=== PATIENT | male | born 1940 | race Caucasian/White ===

== ENCOUNTER 2017-04-27 15:35 | Inpatient (IN) ==
[2017-04-27] MEDS ORDERED: SODIUM CHLORIDE 0.9% 1,000 ML IV STA (16:17)
[2017-04-27 16:22] LABS: Basophils % 0.3 % (0.0-0.8); Eosinophils # 0.1 10*3/uL (0.0-0.87); Eosinophils % 1.7 % (0.00-10.9); Hematocrit 31.4 VOL% (42.0-52.0); Hemoglobin 9.9 GM/DL (14.0-18.0); Immature Granulocytes % 0.6 %; Immature Granulocytes Absolute 0.04 #; Lymphocytes # 0.5 10*3/uL (1.4-4.0); Lymphocytes % 7.5 % (21.2-54.2); Mean Corpuscular HGB Conc 31.5 GM/DL (32-36); Mean Corpuscular Hemoglobin 26 PG (27-34); Mean Corpuscular Volume 81.6 FL (87-102); Mean Platelet Volume 10.6 FL (9.6-12.0); Monocytes # 0.6 10*3/uL (0.11-0.8); Monocytes % 9.2 % (1.7-12.7); Neutrophils # 5.3 10*3/uL (1.4-7.4); Neutrophils % 80.7 % (38.7-73.9); Platelet Count 165 T/CUMM (130-400); Red Blood Count 3.85 MC/CUMM (3.8-5.5); Red Cell Distribution Width 18.8 % (9.3-17.3); White Blood Count 6.6 T/CUMM (4-12)
[2017-04-27] MEDS ORDERED: MORPHINE 2 MG/1 ML SYRINGE IV STA (16:24)
[2017-04-27] MEDS ORDERED: ONDANSETRON 4 MG/2 ML VIAL IV STA (16:24)
[2017-04-27] MEDS ORDERED: ONDANSETRON 4 MG/2 ML VIAL ONE (16:35)
[2017-04-27] MEDS ORDERED: MORPHINE 2 MG/1 ML SYRINGE ONE (16:36)
[2017-04-27 16:47] LABS: Albumin 3.4 G/DL (3.4-5.0); Bilirubin,Total 0.9 MG/DL (0.2-1.0); Calcium 9.3 MG/DL (8.5-10.1); Osmolality,Calculated 296.4 MOS/KG (273-304); Potassium 4.1 MMOL/L (3.5-5.1); Total Protein 7.2 G/DL (6.4-8.3)
[2017-04-27] MEDS ORDERED: INSULIN REGULAR 100 UNIT/ML IV STA (16:53)
[2017-04-27] MEDS ORDERED: INSULIN REGULAR 100 UNIT/ML ONE (17:03)
[2017-04-27 17:12] LABS: Lactic Acid 3.6 MMOL/L (0.4-2.0)
[2017-04-27] MEDS ORDERED: FUROSEMIDE 40 MG/4 ML VIAL IV STA (17:20)
[2017-04-27] MEDS ORDERED: FUROSEMIDE 40 MG/4 ML VIAL ONE (17:20)
--- NOTE | 2017-04-27 17:34 | XRay Report ---
History: Shortness of breath Date: 04/27/2017 Study: Chest x-ray AP portable Comparison exam: November 02, 2016 There is cardiomegaly and mild pulmonary vascular engorgement. There is no obvious mediastinal mass. There is hazy pulmonary edema in the mid to lower lungs. There is mild to moderate right-sided pleural effusion. There may be some elevation of the right hemidiaphragm as before. Osseous structures are unchanged. Impression: Cardiomegaly and evidence of CHF with bibasilar pulmonary edema and right-sided pleural effusion PROCEDURE INTERPRETED AT [facility] DEPARTMENT OF RADIOLOGY Final Report Signed by: Dr. Flavia Avila
[2017-04-27 17:53] LABS: Apearance,Urine CLEAR (Clear); Bilirubin,Urine Negative (Negative); Blood, Urine Small mg/dL (Negative); Glucose,Urine (UA) >=500 mg/dL (Negative); Ketones,Urine 5 mg/dL (Negative); Mucus,Urine Occasional /LPF (Occasional); Nitrite,Urine Negative (Negative); Protein,Urine 100 MG/DL; RBC,Urine 1 /HPF (0-4); Urine Color Colorless (Yellow); Urine Specific Gravity 1.011 (1.001-1.035); Urine Urobilinogen < 2.0 EU/DL (0.2-1.0)
[2017-04-27] MEDS ORDERED: LEVOFLOXACIN INJ 500 MG in PREMIX 1 EACH IV STA (18:13)
[2017-04-27] MEDS ORDERED: ACETAMINOPHEN 325 MG TABLET PO PRN (18:17)
--- NOTE | 2017-04-27 18:17 | Emergency Department Note ---
IGanga Emily, am scribing for, and in the presence of, Lopez Yap M.D. 16 :26. IMarely Howard T, M.D., personally performed the services described in this documentation, ascribed by Milena Schuler in my presence, and it is both accurate and complete 812 . Arrival - Arrival Chief Complaint: Shortness of Breath Stated Complaint: respiratory problems ED Nursing Triage Note: nausea and vomiting with abd pain and SOB onset x 6 days worse over last few days accu check at time of triage 494 Mode of Arrival: Wheelchair Limitations: No Limitations Source: Patient, Family (daughter) Time Seen by Provider: 04/27/17 15:59 - History of Present Illness HPI Narrative: Pt is a 77 y/o male who came to ED with c/o right sided abdomen pain with SOB, and vomiting that started 6 days ago and has worsened. Pt has associated sxs of generalized weakness, subjective fever, dizziness, constipation only for a couple days, and constantly thirsty with dry mouth. Pt was dx with bad gallbladder several years ago due to these sxs but since switched over to Dr. Barger, these sxs just started. Pt saw Dr. Barger 2 weeks ago and dx then with UTI and finished Bactrim abx prescription this week, but denies seeing him this week. Daughter reports having elevated glucose in the 600s since sxs started and usually in the 200s, along with elevated BP of 200/94 in ED. He notes falling a few months ago and thinks he "broke something inside," but not checked out for fall. Daughter notes pt having 1/2 gallon of fluid taken off lungs in the past. Pt is a former smoker and now using smokeless tobacco. Onset (ago): day(s) Consistency: constant Severity: moderate Severity scale (1-10): 7 Quality: aching Allergies/Adverse Reactions: Allergies Allergy/AdvReac Type Severity Reaction Status Date / Time codeine Allergy RASH Verified 10/23/15 21:45 ibuprofen Allergy RASH Verified 10/23/15 21:45 Home Medications: Home Medications Medication Instructions Recorded Confirmed Type Albuterol Neb [Proventil Neb] 2.5 mg RESP TX QID 05/17/15 04/27/17 History Albuterol Sulfate [Proair HFA] 2 puff INH Q4HR PRN 05/17/15 04/27/17 History Esomeprazole Magnesium [Nexium] 40 mg PO DAILY 05/17/15 04/27/17 History Insulin Glargine [Lantus] 70 unit SUBCUT BEDTIME 05/17/15 04/27/17 History Tramadol HCl [Tramadol Tab] 100 mg PO Q6H PRN 05/17/15 04/27/17 History Furosemide Tab [Lasix Tab] 40 mg PO BID #60 tablet 11/01/15 04/27/17 Rx Lisinopril 20 mg PO DAILY #0 11/01/15 04/27/17 Rx Ferrous Sulfate Tab [Feosol 325 mg PO BID tablet 02/01/16 04/27/17 Rx Original Tab] Insulin Lispro [HumaLOG KwikPen] 16 unit SUBCUT TID 10/02/16 04/27/17 History Carvedilol 6.25 mg PO BID 11/02/16 04/27/17 History Gabapentin Cap/Tab [Neurontin 200 mg PO BID 11/02/16 04/27/17 History Cap/Tab] Metformin HCl 1,000 mg PO BID W/MEALS 11/02/16 04/27/17 History Azelastine Nasal 137 Mcg/[place] 2 spray BOTH NARES BID #1 nasal 11/03/16 Rx [Astelin Nasal [place]] spray Magnesium Oxide 400 mg PO BID #30 tablet 11/03/16 04/27/17 Rx Potassium Chloride Cap/Tab [K Dur] 10 meq PO DAILY #30 tablet 11/03/16 04/27/17 Rx Aspirin EC Tab 81 mg PO DAILY 04/27/17 04/27/17 History B-Complex with Vitamin C [Vitamin 1 each PO DAILY 04/27/17 04/27/17 History B-Complex with Vit C] Cholecalciferol (Vitamin D3) 5,000 unit PO DAILY 04/27/17 04/27/17 History [Vitamin D3] Ciprofloxacin HCl [Ciprofloxacin 500 mg PO DAILY 04/27/17 04/27/17 History Tab] Nystatin [Nystatin Oral Susp] 5 ml PO BID 04/27/17 04/27/17 History Review of System - Review of System 12 point system: reviewed and no additional remarkable complaints except as stated - Review of System Constitutional: Present: fever (subjective), weakness (generalized). Absent: chills Respiratory: Present: respiratory distress Cardiovascular: Absent: chest pain Gastrointestinal: Present: abdominal pain (right side), nausea, vomiting, constipation (only couple days, but had BM today) Genitourinary male: Absent: dysuria Musculoskeletal: Absent: arm pain, neck pain Skin: Absent: rash Neurological: Absent: weakness, numbness, paresthesias, confusion Psychiatric: Absent: anxiety Medical,Surgical,& Family Hx - Medical History Cardio: History of: Cardiac Dysrhythmia (atrial fibrillation, history of), CHF, Hypertension, Cardiovascular Problems (stents in legs) No history of: Pacemaker Psychological: No history of: Anxiety Disorders Neurology: History of: Cerebrovascular Accident, Vertigo No history of: Seizures HEENT: History of: Ear Problem (HARD OF HEARING), Eye Problem (BILATERAL IMPLANTS,CATERACTS), HEENT Problems (DRY MOUTH) Endocrine: History of: Diabetes Mellitus (IDDM) Rheumatology: History of;: Rheumatoid Arthritis (ALL OVER) Respiratory: History of: Asthma, Bronchitis, COPD, Pneumonia, Respiratory Problems Genitourinary: History of: Prostate Problems Gastrointestinal: History of: GERD, GI Problems Musculoskeletal: History of: Back/Neck Problems, Musculoskeletal Problems ( LOWER BACK AND BILATERAL KNEES) Hematology: History of: Anemia No history of: Blood Transfusion Reaction - Surgical History Cardiac Surgeries: Sugical HX of: Cardiac Catheterization, Carotid Endarterectomy (BILATERAL) Thoracic Surgeries: Patient denies;: Lobectomy Neurologic Surgeries: Patient denies: Neurologic Surgery HEENT Surgeries: Surgical HX of: Carotid Endarterectomy (BILATERAL), Eye Surgery Patient denies: Thyroid Surgery, Tonsilectomy & Adenoidectomy Abdominal Surgeries: Surgical HX of: Abdominal Surgery (BOWEL RESECTION DUE TO BLUNT TRAUMA AT 12 Y/O), Appendectomy Reproductive Surgeries: Patient denies;: Genitourinary Surgery Orthopedic Surgeries: Surgical HX of;: Spinal Surgery (lumbar) - Family History Family History: Reports;: Family Cancer (SON), Family Diabetes (DAD,AUNT, DAUGHTER), Family Heart Disease, Family Hypertension, Family Stroke - Social History Smoking Status: Former smoker Frequency of Alcohol Use: None Type of Drug Use: None Marital Status: Single Lives With:: Alone Functional capacity: independent ambulation Exam Vital Signs: Vital Signs Temperature 98.4 F 04/27/17 16:15 Pulse Rate 88 04/27/17 17:24 Respiratory Rate 20 04/27/17 17:24 Blood Pressure 200/98 04/27/17 17:24 O2 Sat by Pulse Oximetry 96 04/27/17 17:24 - General General appearance: alert, in distress (moderately secondary to pain) - Head Head exam: Present: atraumatic, normocephalic - Eye Eye exam: Present: PERRL, EOMI - ENT ENT exam: Present: mucous membranes moist. Absent: mucous membranes dry - Neck Neck exam: Present: full ROM. Absent: tenderness - Chest Chest inspection: Present: symmetric chest wall rise. Absent: tenderness - Respiratory Respiratory exam: Present: accessory muscle use (mildly). Absent: normal lung sounds bilaterally (coarse sounds in bilateral lung field, more so in left than right) - Cardiovascular Cardiovascular exam: Present: tachycardia, normal heart sounds - Abdominal Exam Abdominal exam: Present: soft, distention (mildly distened), tenderness ( diffusely). Absent: guarding, rebound - Extremities Exam Extremities exam: Present: full ROM, pedal edema (severe pitting edema bilateral lower extremities). Absent: tenderness - Neurological Exam Neurological exam: Present: alert, oriented X3, CN II-XII intact. Absent: motor sensory deficit - Psychiatric Psychiatric exam: Present: normal affect, normal mood - Skin Skin exam: Present: warm, dry Course Course Narrative: Medical decision making: During the ER evaluation patient's history and exam suggests shortness of breath caused by pulmonary edema likely related to cardiac history, given some Lasix. Also given fluids and insulin because of elevated blood sugar however no evidence of DKA. Elevated lactic acid but no evidence of infection, treated with dose of antibiotics presumptively but unclear if this will need to be continued. Discussed with Dr. Kumar who will admit to her service for continued evaluation and treatment, will recommend ICU bed initially. Results - Labs CBC & BMP: 04/27/17 16:14 04/27/17 16:14 Lab Results: I have reviewed the patients labs Labs: Laboratory Tests 04/27/17 16:14 WBC 6.6 RBC 3.85 Hgb 9.9 L Hct 31.4 L MCV 81.6 L MCH 26 L MCHC 31.5 L RDW 18.8 H Neut % (Auto) 80.7 H Lymph % (Auto) 7.5 L Lymph # (Auto) 0.5 L - Diagnostic Findings Procedure: Chest x-ray: report reviewed by me (Pulmonary edema and effusion noted) Disposition Clinical Impression: Congestive heart failure, Shortness of breath Case discussed with: patient Disposition: Still a Patient Condition: Guarded Time of Disposition: 18:17
[2017-04-27] MEDS ORDERED: SODIUM CHLORIDE 0.9% 1,000 ML IV SCH (18:30)
[2017-04-27] MEDS ORDERED: INSULIN REGULAR DRIP 100 ML IV SCH (19:00)
[2017-04-27] MEDS ORDERED: LEVOFLOXACIN INJ 100 ML IV ONE (19:13)
[2017-04-27] MEDS ORDERED: INSULIN REGULAR DRIP 100 ML IV ONE (19:14)
[2017-04-27] MEDS: ONDANSETRON 4 MG/2 ML VIAL IV PRN (20:35)
[2017-04-27] MEDS: CARVEDILOL 6.25 MG TABLET PO SCH (20:44)
[2017-04-27] MEDS: DOCUSATE SODIUM 100 MG CAPSULE PO SCH (20:44)
[2017-04-27] MEDS ORDERED: LISINOPRIL 20 MG TABLET PO ONE (21:18)
[2017-04-27] MEDS: GABAPENTIN 100 MG CAPSULE PO SCH (21:30)
--- NOTE | 2017-04-27 21:58 | Internal Med History&Physical ---
Assessment and Plan (1) Epigastric abdominal pain Status: Acute Current Visit: Yes (2) Right upper quadrant abdominal pain Status: Acute Current Visit: Yes (3) Shortness of breath Status: Acute Current Visit: Yes (4) Congestive heart failure Status: Chronic Current Visit: Yes (5) Exertional angina Status: Acute Current Visit: Yes (6) Peripheral vascular disease Status: Chronic Current Visit: No (7) Atrial fibrillation Status: Chronic Current Visit: Yes Qualifiers: Atrial fibrillation type: chronic Qualified Code(s): I48.2 - Chronic atrial fibrillation (8) Diabetes Status: Chronic Current Visit: Yes Qualifiers: Diabetes mellitus type: type 2 Diabetes mellitus complication status: with hyperglycemia Diabetes mellitus alf insulin use: with alf use Qualified Code(s): E11.65 - Type 2 diabetes mellitus with hyperglycemia; 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 Tenorio is a 77 year old male patient of Dr. Barger with history of DM, peripheral neuropathy, OA, HTN, dyslipidemia, COPD, asthmatic bronchitis, atherosclerotic disease to include PAD with stent placement in legs and carotid disease (endarterectomy), stroke, chronic atrial fibrillation rate controlled on Coreg, recently treated UTI, who presented to ER with nausea, vomiting, weakness, epigastric and RUQ abdominal pain, and significant hyperglycemia. He was also found to have elevated lactic acid. He reports being unable to take his home meds for last 2-3 days because of vomiting. Also, peripheral neuropathy is now more pronounced, along with agitation. He has not had Gabapentin in the last 2 days. However, he reports history of gallstones, and thinks that may be the problem now. Have ordered RUQ ultrasound and HIDA for the morning. GI consult. Vomiting has been persistent and Phenergan IM has been ordered. Home Medications Medication Instructions Recorded Confirmed Type Albuterol Neb [Proventil Neb] 2.5 mg RESP TX QID 05/17/15 04/27/17 History Albuterol Sulfate [Proair HFA] 2 puff INH Q4HR PRN 05/17/15 04/27/17 History Esomeprazole Magnesium [Nexium] 40 mg PO DAILY 05/17/15 04/27/17 History Insulin Glargine [Lantus] 70 unit SUBCUT BEDTIME 05/17/15 04/27/17 History Tramadol HCl [Tramadol Tab] 100 mg PO Q6H PRN 05/17/15 04/27/17 History Furosemide Tab [Lasix Tab] 40 mg PO BID #60 tablet 11/01/15 04/27/17 Rx Lisinopril 20 mg PO DAILY #0 11/01/15 04/27/17 Rx Ferrous Sulfate Tab [Feosol 325 mg PO BID tablet 02/01/16 04/27/17 Rx Original Tab] Insulin Lispro [HumaLOG KwikPen] 16 unit SUBCUT TID 10/02/16 04/27/17 History Carvedilol 6.25 mg PO BID 11/02/16 04/27/17 History Gabapentin Cap/Tab [Neurontin 200 mg PO BID 11/02/16 04/27/17 History Cap/Tab] Metformin HCl 1,000 mg PO BID W/MEALS 11/02/16 04/27/17 History Azelastine Nasal 137 Mcg/[place] 2 spray BOTH NARES BID #1 nasal 11/03/16 Rx [Astelin Nasal [place]] spray Magnesium Oxide 400 mg PO BID #30 tablet 11/03/16 04/27/17 Rx Potassium Chloride Cap/Tab [K Dur] 10 meq PO DAILY #30 tablet 11/03/16 04/27/17 Rx Aspirin EC Tab 81 mg PO DAILY 04/27/17 04/27/17 History B-Complex with Vitamin C [Vitamin 1 each PO DAILY 04/27/17 04/27/17 History B-Complex with Vit C] Cholecalciferol (Vitamin D3) 5,000 unit PO DAILY 04/27/17 04/27/17 History [Vitamin D3] Ciprofloxacin HCl [Ciprofloxacin 500 mg PO DAILY 04/27/17 04/27/17 History Tab] Nystatin [Nystatin Oral Susp] 500,000 unit PO BID 04/27/17 04/27/17 History Allergies Allergy/AdvReac Type Severity Reaction Status Date / Time codeine Allergy RASH Verified 10/23/15 21:45 ibuprofen Allergy RASH Verified 10/23/15 21:45 Medical,Surgical,& Family Hx - Medical History Cardio: History of: Cardiac Dysrhythmia (atrial fibrillation, history of), CHF, Hypertension, PVD (stent placement in legs) No history of: Pacemaker Psychological: No history of: Anxiety Disorders Neurology: History of: Cerebrovascular Accident, Vertigo No history of: Seizures HEENT: History of: Ear Problem (HARD OF HEARING), Eye Problem (BILATERAL IMPLANTS,CATERACTS), HEENT Problems (DRY MOUTH) Endocrine: History of: Diabetes Mellitus (IDDM) Rheumatology: History of;: Rheumatological Problems Respiratory: History of: Asthma, Bronchitis, COPD, Pneumonia, Respiratory Problems Genitourinary: History of: Prostate Problems Gastrointestinal: History of: GERD, GI Problems Musculoskeletal: History of: Back/Neck Problems, Musculoskeletal Problems ( LOWER BACK AND BILATERAL KNEES) Hematology: History of: Anemia No history of: Blood Transfusion Reaction - Surgical History Cardiac Surgeries: Sugical HX of: Cardiac Catheterization, Carotid Endarterectomy (BILATERAL) Thoracic Surgeries: Patient denies;: Lobectomy Neurologic Surgeries: Patient denies: Neurologic Surgery HEENT Surgeries: Surgical HX of: Carotid Endarterectomy (BILATERAL), Eye Surgery Patient denies: Thyroid Surgery, Tonsilectomy & Adenoidectomy Abdominal Surgeries: Surgical HX of: Abdominal Surgery (BOWEL RESECTION DUE TO BLUNT TRAUMA AT 12 Y/O), Appendectomy Reproductive Surgeries: Patient denies;: Genitourinary Surgery Orthopedic Surgeries: Surgical HX of;: Spinal Surgery (lumbar) - Family History Family History: Reports;: Family Cancer (SON), Family Diabetes (DAD,AUNT, DAUGHTER), Family Heart Disease, Family Hypertension, Family Stroke - Social History Smoking Status: Former smoker Frequency of Alcohol Use: None Type of Drug Use: None - Constitutional Constitutional: Present: fatigue, lethargy, weakness - Respiratory Respiratory: Present: dyspnea on exertion - Gastrointestinal Gastrointestinal: Present: abdominal pain, nausea, vomiting - Musculoskeletal Musculoskeletal: Present: arthralgias, muscle weakness, myalgias - Psychiatric Psychiatric: Present: anxiety (helped with gabapentin and coreg) Exam - Constitutional Vitals: Period Temp Pulse Resp BP Sys/Interiano Pulse Ox Last 24 Hr 97.2 F-98.5 F 85-119 20-25 114-206/54-124 89-98 General appearance: no acute distress - Head Head exam: Present: normocephalic - Eye Eye exam: Present: EOMI - Respiratory Respiratory exam: Present: clear to auscultation bilaterally - Cardiovascular Cardiovascular exam: Present: irregular rhythm - GI/Abdominal GI/Abdominal exam: Present: normal bowel sounds, tenderness (epigastric and RUQ) , soft - Extremities Exam Extremities exam: Present: edema (mild nonpitting edema to both lower extremities) - Neurological Exam Neurological exam: Present: alert, oriented X3 - Psychiatric Psychiatric exam: Present: normal mood - Skin Skin exam: Present: warm, dry Results - Labs CBC & BMP: 04/27/17 16:14 04/27/17 16:14 - EKG EKG shows: atrial fibrillation - Diagnostic Findings Procedure: Chest x-ray: image reviewed by me, report reviewed by me
[2017-04-27] MEDS ORDERED: DEXTROSE 50% 25 GM/50 ML VIAL IV PRN (22:37)
[2017-04-27] MEDS ORDERED: GLUCAGON 1 MG VIAL IM PRN (22:37)
[2017-04-27] MEDS ORDERED: POTASSIUM CHLORIDE 20 MEQ TABLET PO PRN (22:38)
[2017-04-27] MEDS ORDERED: PROMETHAZINE 25 MG/1 ML VIAL ONE (22:47)
[2017-04-27] MEDS ORDERED: hydrALAZINE 20 MG/1 ML VIAL IV PRN (22:49)
[2017-04-27] MEDS: AZELASTINE NASAL 137 MCG/SPRAY 30 ML BOTTLE BOTH NARES SCH (23:16)
[2017-04-27] MEDS: cefTRIAXone 1,000 MG in SODIUM CHLORIDE 0.9% 100 ML IV SCH (23:16)
[2017-04-27] MEDS: PROMETHAZINE 25 MG/1 ML VIAL IM PRN (23:16)
[2017-04-27] MEDS: traMADol 50 MG TABLET PO PRN (23:17)
[2017-04-27] MEDS: ALBUTEROL/IPRATROPIUM 3 ML NEB RESP TX SCH (23:33)
[2017-04-28] MEDS: traZODone 50 MG TABLET PO SCH ×3 (00:55→20:04)
[2017-04-28] MEDS: ALBUTEROL/IPRATROPIUM 3 ML NEB RESP TX SCH ×6 (03:17→23:47)
[2017-04-28] MEDS: SODIUM CHLORIDE 0.9% 1,000 ML IV SCH ×4 (03:46→20:04)
[2017-04-28 05:36] LABS: Basophils % 0.6 % (0.0-0.8); Eosinophils # 0.5 10*3/uL (0.0-0.87); Eosinophils % 6.6 % (0.00-10.9); Hematocrit 28.1 VOL% (42.0-52.0); Hemoglobin 8.8 GM/DL (14.0-18.0); Immature Granulocytes % 0.4 %; Immature Granulocytes Absolute 0.03 #; Lymphocytes # 0.9 10*3/uL (1.4-4.0); Lymphocytes % 12.4 % (21.2-54.2); Mean Corpuscular HGB Conc 31.3 GM/DL (32-36); Mean Corpuscular Hemoglobin 26 PG (27-34); Mean Corpuscular Volume 82.2 FL (87-102); Mean Platelet Volume 10.5 FL (9.6-12.0); Monocytes # 0.8 10*3/uL (0.11-0.8); Monocytes % 11.3 % (1.7-12.7); Neutrophils # 4.7 10*3/uL (1.4-7.4); Neutrophils % 68.7 % (38.7-73.9); Platelet Count 158 T/CUMM (130-400); Red Blood Count 3.42 MC/CUMM (3.8-5.5); Red Cell Distribution Width 18.8 % (9.3-17.3); White Blood Count 6.8 T/CUMM (4-12)
[2017-04-28 06:11] LABS: Albumin 2.8 G/DL (3.4-5.0); Bilirubin,Total 0.8 MG/DL (0.2-1.0); Calcium 8.7 MG/DL (8.5-10.1); Osmolality,Calculated 277.4 MOS/KG (273-304); Potassium 3.4 MMOL/L (3.5-5.1); Total Protein 6.3 G/DL (6.4-8.3)
[2017-04-28] MEDS: INSULIN REGULAR 100 UNIT/ML SUBCUT SCH ×4 (08:15→20:03)
[2017-04-28] MEDS: INSULIN GLARGINE 100 UNIT/ML SUBCUT SCH ×2 (08:21→20:04)
--- NOTE | 2017-04-28 08:21 | EKG Report ---
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
[2017-04-28] MEDS: FUROSEMIDE 40 MG/4 ML VIAL IV SCH ×2 (08:23→16:41)
[2017-04-28] MEDS ORDERED: PANTOPRAZOLE 40 MG TABLET PO SCH (09:00)
--- NOTE | 2017-04-28 11:48 | Ultrasound Report ---
Exam: US right upper quadrant Date:04/28/2017 10:07 PM Comparison:None Indication: Abdominal pain. History of gallstone Real-time ultrasound images are captured and archived. There is no focal hepatic mass. There are mildly increased echoes throughout the hepatic parenchyma compatible with some mild fatty infiltration of the liver. Numerous highly echogenic foci with posterior acoustic shadowing noted in the lumen of the gallbladder. There is mild gallbladder wall thickening between 3 mm and 4.5 mm. There is a negative sonographic Barakat sign. There is hepatopedal flow in the portal vein. The right kidney appears normal. The pancreas is obscured by bowel gas. There is mild to moderate right-sided pleural effusion.. ORGAN MEASUREMENTS Liver Length: 20.4 cm Gallbladder Wall Thickness: 3.0-4.6 mm CBD: 4 mm Right kidney: Length: 12.0 Width: 6.1 AP: 6.4 cm Impression: Cholelithiasis with mild gallbladder wall thickening. Negative sonographic Barakat sign Nonspecific mild hepatomegaly Mild to moderate right pleural effusion PROCEDURE INTERPRETED AT [facility] DEPARTMENT OF RADIOLOGY Final Report Signed by: Dr. Flavia Avila
--- NOTE | 2017-04-28 11:49 | Gastrointestinal Consult Note ---
Assessment and Plan - Time spent with patient Time spent with patient: Greater than 30 minutes (1) Abdominal pain Status: Acute Current Visit: Yes (2) Dysphagia Status: Acute Current Visit: Yes (3) Congestive heart failure Status: Acute Current Visit: No (4) Pulmonary edema Status: Acute Current Visit: No (5) Anemia Status: Chronic Current Visit: No (6) Anemia Status: Chronic Current Visit: No Qualifiers: Other causes of anemia: chronic disease, other (7) Peripheral vascular disease Status: Chronic Assessment and plan: PLEASE NOTE -- automatic citation of patient information is unavoidable in this electronic note. I have made a reasonable effort to review the information cited , but it is not a part of my evaluation, impression, or recommendation unless specifically discussed in the dictated text that follows. As well, voice recognition software was used in the creation of this clinical note. Reasonable effort was made to identify and correct gross errors. Despite proofreading, errors in ginner may be present, including nonsense verbiage at times. If you encounter such an error, please contact me at for discussion and correction. -- Dr. Gallegos Chief complaint/Consult Question: Right upper quadrant pain with question of gallstones Consult requested by: José Daughter is a nurse and helps provide some of the history History of present illness: This is a new patient, a 77-year-old man with peripheral artery disease with peripheral stents, prior plavix, carotid artery disease, stroke, A. fib, recently treated UTI, also with prior admission for melena in Oct 2015, who presented to the ER with diffuse abdominal pain, which is worsen from baseline, with sharp features in the LEFT upper abdomen, radiating to the back, associated with SOB, orthopnea, nausea, non-bloody, non- billous vomiting, weakness, with glucose >400 and lactic acidosis. Reportedly has not been taking his home meds for 2-3 days because of the vomiting. Denies NSAIDs. States he had prior gall stones blocking something, about 10-12 years ago, but no intervention was performed. No prior pancreatitis. No alcohol use. Thinks he had an EGD and CSP about 1 year ago, which was eluded to in the past inpatient chart (planned for Oct 2016), but I cannot confirm these procedures were done and no report available. Was started on ferrous sulfate BID about [address] Barger per pt. Iron last checked our system in January 2016 was low. Patient reporting chronic intermittent dysphagia, supported by history from daughter. Denies current or recent hematochezia, melena, hematemesis. GI review of systems included: heartburn, regurgitation, early satiety, dysphagia, odynophagia, abdominal pain, nausea, vomiting, hematemesis, weight loss, weight gain, fever, chills, fatigue, decreased appetite, diarrhea, constipation, hematochezia, melena, bloating, malodorous flatus, anal pain, or NSAID use, and was negative except as noted above. REVIEW OF SYSTEMS: Complete other review of systems somewhat limited due to patient's clinical status, but otherwise negative except as noted in the HPI: Patient reporting chronic leg, back, hip pain. States he fell a number of weeks ago, with some loud popping, but has not had it evaluated. Outpatient medications: Personally reviewed Nexium 40 mg daily Ferrous sulfate 325 mg twice daily Magnesium oxide 400 mg p.o. twice daily Potassium chloride 10 mEq daily Aspirin 81 mg daily B complex with vitamin C daily Vitamin D 5000 units daily Ciprofloxacin 500 mg daily Albuterol, Lantus, tramadol, Lasix 40 mg twice daily, lisinopril, Humalog, Coreg , gabapentin, metformin, Astelin nasal spray, nystatin Inpatient medications: Personally reviewed Aspirin 81 mg daily Acetaminophen as needed And others Past Medical History: Personally reviewed Significant for vascular disease, peripheral vascular disease with stents placed approximately 10 years ago at [place] according to daughter, carotid artery disease, atrial fibrillation Melena October 2015 Social history: Former smoker, quit 1999, but still dipping tobacco. No use of alcohol, no prior heavy Family history: Son with thyroid cancer, no other GI related disease or cancer in the family PHYSICAL EXAMINATION: CONSTITUTIONAL: Vital signs reviewed as documented above. In no acute distress. Nontoxic-appearing. EYES: Anicteric conjunctiva. Extra-ocular movements are intact and symmetric. EARS: Able to hear speech at conversational volume level, no external trauma/ masses. MOUTH: No oral/mouth lesions or ulcers. NECK: No masses or crepitus. Thyroid is of normal size and symmetric. HEART: irRegular rate, regular rhythm, distal extremities with edema LUNGS: Diffuse bilateral poor air movement, severe expiratory wheezing, increased work of breathing. GI/ABDOMEN: Obese abdomen, soft, diffusely tender to palpation with more severe pain noted in the right lower quadrant right upper quadrant and left upper quadrant. Reducible hernia along the superior anterior midline, which patient also states is tender. no rebound tenderness, nondistended, no rigidity. No appreciable hepatosplenomegaly. SKIN: No rash on face, arms, or hands. No palpable lesions. Distal legs with tenderness and erythema on the shins consistent with vascular insufficiency MUSCULOSKELETAL: Laying in bed. Muscle tone appears normal without any abnormal movements. PSYCH: Normal affect. Alert and oriented to person, place, and time. Tangential history Laboratory: Personally reviewed CBC: 6.8/8 0.8/158 BMP: 140/3 0.4/1 10/22// 0.1, glucose now 86 Lactic acid on admission was 3.6, has not been repeated Calcium 8.7 Liver panel: 13, 14, 92, total bilirubin 0.8 BNP 465 Urine: Small blood, 1 RBC, less than 2 urobilinogen Radiology: Personally reviewed reports and images Right upper quadrant ultrasound, final review pending, CBD appears 4 mm Chest x-ray AP portable, cardiomegaly and evidence of pulmonary vascular engorgement, no mediastinal masses. Hazy pulmonary edema in the mid to lower lungs. Mild to moderate right-sided pleural effusion. May be some elevation of the right hemidiaphragm as before. HIDA scan ordered and scheduled for this afternoon Assessments: #Abdominal pain: Patient reporting acute on chronic abdominal pain, with acute features mostly in the left upper quadrant radiating to the back. Also with pain in the right upper quadrant and right lower quadrant. Differential diagnosis for this patient is somewhat broad. It includes peptic ulcer disease , cholecystitis, choledocholithiasis, mesenteric ischemia, fluid overload with relative stasis of blood flow through the gut causing relative ischemia, and HI presenting as pseudo-abdominal pain. Patient was significant vascular disease, appears to be off of his Plavix, with acute on chronic symptoms are most concerning for some sort of vascular insufficiency of the heart or gut. Lactic acidosis on presentation with glucose greater than 400 could indicate DKA versus gut ischemia versus other systemic/cardiac ischemia. There is currently no evidence of leukocytosis, elevated liver associated enzymes, elevated bilirubin, fevers to suggest obstructed choledocholithiasis, ascending cholangitis, and also makes cholecystitis less likely. Low suspicion for pancreatitis. #Anemia: With report of melena October 2015, plan for EGD and colonoscopy that I cannot confirm of been done, prior iron deficiency in January 2016, and recent re- initiation of ferritin, there is likely a component of iron deficiency anemia. There is no evidence of acute bleeding at this time. #dysphagia: Reported primarily to solids, cannot clearly assess for liquids. Intermittent. Unclear timeframe or progression based on patient's poor history. But daughter who is a nurse does confirm the symptoms are recurrent. Unlikely related to current presentation. Differential diagnosis includes esophagitis, stricture, mass, motility disorder, others. #Pulmonary edema: as seen on CXR, physical exam, and patient expressing some fatigue with O2 sat ranging 86-94 during my exam. #Vascular insufficiency of the distal extremities as evidenced by prior diagnosis, prior stents,: Now off of Plavix, distal extremities with abnormal skin findings as well as patient reporting severe pain with walking. #Reported trauma: defer work-up and assessment to primary team #Other specified counseling -- The patient was seen for greater than 30 minutes. The patient was counseled for greater than 50% of this time regarding differential diagnosis, likely diagnosis, diagnostic and therapeutic alternatives, risks/benefits/alternatives of medications and procedures, and plan of care generally. The patient expressed understanding and wishes to proceed. Recommendations: -Repeat lactic acid to ensure has normalized and that ischemia is not persistentordered lipaseordered -Fasting iron studiesordered for tomorrow morning -Follow-up final ultrasound results, and HIDA scan results, to rule out gallbladder disease -Repeat CMP tomorrow morning -Consider cardiac disease as primary source of current clinical syndrome with left upper abdominal chest pain, shortness of breath, pulmonary edema in the setting of such severe vascular disease -Consider lower vascular reevaluation as an inpatient or outpatient -If gallbladder and cardiac evaluation are unrevealing, consider CT of the abdomen with possible angiography, and or EGD and colonoscopy -Patient will need EGD as an outpatient at a minimum for reported dysphagia -Patient will need EGD and colonoscopy as an outpatient at a minimum if iron deficiency anemia is diagnosed Radha Gallegos MD, M[facility] [employer]FF [employer] Current Visit: No History of Present Illness History of present illness: Mr. Tenorio is a 77 year old male Home Medications Medication Instructions Recorded Confirmed Type Albuterol Neb [Proventil Neb] 2.5 mg RESP TX QID 05/17/15 04/27/17 History Albuterol Sulfate [Proair HFA] 2 puff INH Q4HR PRN 05/17/15 04/27/17 History Esomeprazole Magnesium [Nexium] 40 mg PO DAILY 05/17/15 04/27/17 History Insulin Glargine [Lantus] 70 unit SUBCUT BEDTIME 05/17/15 04/27/17 History Tramadol HCl [Tramadol Tab] 100 mg PO Q6H PRN 05/17/15 04/27/17 History Furosemide Tab [Lasix Tab] 40 mg PO BID #60 tablet 11/01/15 04/27/17 Rx Lisinopril 20 mg PO DAILY #0 11/01/15 04/27/17 Rx Ferrous Sulfate Tab [Feosol 325 mg PO BID tablet 02/01/16 04/27/17 Rx Original Tab] Insulin Lispro [HumaLOG KwikPen] 16 unit SUBCUT TID 10/02/16 04/27/17 History Carvedilol 6.25 mg PO BID 11/02/16 04/27/17 History Gabapentin Cap/Tab [Neurontin 200 mg PO BID 11/02/16 04/27/17 History Cap/Tab] Metformin HCl 1,000 mg PO BID W/MEALS 11/02/16 04/27/17 History Azelastine Nasal 137 Mcg/[place] 2 spray BOTH NARES BID #1 nasal 11/03/16 Rx [Astelin Nasal [place]] spray Magnesium Oxide 400 mg PO BID #30 tablet 11/03/16 04/27/17 Rx Potassium Chloride Cap/Tab [K Dur] 10 meq PO DAILY #30 tablet 11/03/16 04/27/17 Rx Aspirin EC Tab 81 mg PO DAILY 04/27/17 04/27/17 History B-Complex with Vitamin C [Vitamin 1 each PO DAILY 04/27/17 04/27/17 History B-Complex with Vit C] Cholecalciferol (Vitamin D3) 5,000 unit PO DAILY 04/27/17 04/27/17 History [Vitamin D3] Ciprofloxacin HCl [Ciprofloxacin 500 mg PO DAILY 04/27/17 04/27/17 History Tab] Nystatin [Nystatin Oral Susp] 500,000 unit PO BID 04/27/17 04/27/17 History Allergies Allergy/AdvReac Type Severity Reaction Status Date / Time codeine Allergy RASH Verified 10/23/15 21:45 ibuprofen Allergy RASH Verified 10/23/15 21:45 Medical,Surgical,& Family Hx - Medical History Cardio: History of: Cardiac Dysrhythmia (atrial fibrillation, history of), CHF, Hypertension, PVD (stent placement in legs), Cardiovascular Problems (stents in legs) No history of: Pacemaker Psychological: No history of: Anxiety Disorders Neurology: History of: Cerebrovascular Accident, Vertigo No history of: Seizures HEENT: History of: Ear Problem (HARD OF HEARING), Eye Problem (BILATERAL IMPLANTS,CATERACTS), HEENT Problems (DRY MOUTH) Endocrine: History of: Diabetes Mellitus (IDDM) Rheumatology: History of;: Rheumatoid Arthritis (ALL OVER), Rheumatological Problems Respiratory: History of: Asthma, Bronchitis, COPD, Pneumonia, Respiratory Problems Genitourinary: History of: Prostate Problems Gastrointestinal: History of: GERD, GI Problems Musculoskeletal: History of: Back/Neck Problems, Musculoskeletal Problems ( LOWER BACK AND BILATERAL KNEES) Hematology: History of: Anemia No history of: Blood Transfusion Reaction - Surgical History Cardiac Surgeries: Sugical HX of: Cardiac Catheterization, Carotid Endarterectomy (BILATERAL) Thoracic Surgeries: Patient denies;: Lobectomy Neurologic Surgeries: Patient denies: Neurologic Surgery HEENT Surgeries: Surgical HX of: Carotid Endarterectomy (BILATERAL), Eye Surgery Patient denies: Thyroid Surgery, Tonsilectomy & Adenoidectomy Abdominal Surgeries: Surgical HX of: Abdominal Surgery (BOWEL RESECTION DUE TO BLUNT TRAUMA AT 12 Y/O), Appendectomy Reproductive Surgeries: Patient denies;: Genitourinary Surgery Orthopedic Surgeries: Surgical HX of;: Spinal Surgery (lumbar) - Family History Family History: Reports;: Family Cancer (SON), Family Diabetes (DAD,AUNT, DAUGHTER), Family Heart Disease, Family Hypertension, Family Stroke - Social History Smoking Status: Former smoker Frequency of Alcohol Use: None Type of Drug Use: None Exam - Constitutional Vitals: Period Temp Pulse Resp BP Sys/Interiano Pulse Ox Last 24 Hr 97.2 F-98.5 F 54-119 14-29 93-206/44-124 89-100 Results - Labs CBC & BMP: 04/28/17 05:04 04/28/17 05:04
--- NOTE | 2017-04-28 14:00 | Nuclear Medicine Report ---
History: Abdominal pain. Vomiting. Cholelithiasis Date: 04/28/2017 Study: Nuclear medicine hepatobiliary scan with gallbladder ejection fraction Comparison exam: No previous similar Following the IV administration of 5 mCi technetium 99m Choletec, there is homogeneous uptake of the radiotracer by the liver. There is visualization of duodenal activity at 10 minutes and of gallbladder activity at 20 minutes. Following routine dynamic imaging, gallbladder ejection fraction was calculated. Counts were measured over the gallbladder for 60 minutes after the ingestion of 8 ounces of ensure. The gallbladder ejection fraction measures 0% with ascending curve. The patient did report some cramping with ingestion of ensure. Impression: Abnormally low gallbladder ejection fraction of 0%. Otherwise unremarkable exam PROCEDURE INTERPRETED AT [facility] DEPARTMENT OF RADIOLOGY Final Report Signed by: Dr. Flavia Avila
--- NOTE | 2017-04-28 14:02 | Internal Med Progress Note ---
Assessment and Plan (1) Epigastric abdominal pain Status: Acute Current Visit: Yes (2) Right upper quadrant abdominal pain Status: Acute Current Visit: Yes (3) Shortness of breath Status: Acute Current Visit: Yes (4) Congestive heart failure Status: Chronic Current Visit: Yes (5) Exertional angina Status: Acute Current Visit: Yes (6) Peripheral vascular disease Status: Chronic Current Visit: No (7) Atrial fibrillation Status: Chronic Current Visit: Yes Qualifiers: Atrial fibrillation type: chronic Qualified Code(s): I48.2 - Chronic atrial fibrillation (8) Diabetes Status: Chronic Current Visit: Yes Qualifiers: Diabetes mellitus type: type 2 Diabetes mellitus complication status: with hyperglycemia Diabetes mellitus intermediate insulin use: with intermediate use Qualified Code(s): E11.65 - Type 2 diabetes mellitus with hyperglycemia; 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 Tenorio is a 77 year old male patient of Dr. Barger with history of DM, peripheral neuropathy, OA, HTN, dyslipidemia, COPD, asthmatic bronchitis, atherosclerotic disease to include PAD with stent placement in legs and carotid disease (endarterectomy), stroke, chronic atrial fibrillation rate controlled on Coreg, recently treated UTI, who presented to ER with nausea, vomiting, weakness, epigastric and RUQ abdominal pain, and significant hyperglycemia. He was also found to have elevated lactic acid. He reports being unable to take his home meds for last 2-3 days because of vomiting. Also, peripheral neuropathy is now more pronounced, along with agitation. He has not had Gabapentin in the last 2 days. However, he reports history of gallstones, and thinks that may be the problem now. Have ordered RUQ ultrasound and HIDA for the morning. GI consult. V Vomiting has been persistent and Phenergan IM has been ordered. Having to keep him NPO. Vomiting post prandial. He will need TPN for nutritional support, and [facility] has been consulted. Consulting FRANKIE King for gallbladder. HIDA scan at 0% ejection fraction and ultrasound indicates wall thickening and gallstones. PICC line placement in the morning per Dr. Markus Kumar for TPN. Exam (Progress Note) - Constitutional Vitals: Period Temp Pulse Resp BP Sys/Interiano Pulse Ox Last 24 Hr 97.2 F-98.5 F 54-119 14-29 93-206/44-124 89-100 General appearance: other (uncomfortable with nausea and vomiting) - Respiratory Respiratory exam: Present: clear to auscultation bilaterally - Cardiovascular Cardiovascular exam: Present: irregular rhythm - GI/Abdominal GI/Abdominal exam: Present: tenderness - Extremities Exam Extremities exam: Absent: edema - Neurological Exam Neurological exam: Present: alert - Psychiatric Psychiatric exam: Present: normal mood - Skin Skin exam: Present: warm, dry Results - Labs CBC & BMP: 04/28/17 05:04 04/28/17 05:04 - EKG EKG shows: atrial fibrillation - Diagnostic Findings Procedure: Ultrasound: report reviewed by me
[2017-04-28] MEDS: traMADol 50 MG TABLET PO PRN (14:37)
[2017-04-28] MEDS: GABAPENTIN 100 MG CAPSULE PO SCH ×2 (14:39→20:04)
[2017-04-28 14:41] LABS: Troponin I Only 0.035 NG/ML (0.00-0.045)
[2017-04-28] MEDS: PROMETHAZINE 25 MG/1 ML VIAL IM PRN (14:45)
[2017-04-28] MEDS: LISINOPRIL 20 MG TABLET PO SCH (14:56)
[2017-04-28] MEDS: POTASSIUM CHLORIDE 20 MEQ TABLET PO SCH (14:56)
[2017-04-28] MEDS: AZELASTINE NASAL 137 MCG/SPRAY 30 ML BOTTLE BOTH NARES SCH ×2 (15:30→20:03)
[2017-04-28] MEDS: MAGNESIUM OXIDE 400 MG TABLET PO SCH ×2 (15:30→20:04)
[2017-04-28] MEDS: ASPIRIN EC 81 MG TABLET PO SCH (15:30)
[2017-04-28] MEDS: DOCUSATE SODIUM 100 MG CAPSULE PO SCH ×2 (15:30→20:04)
[2017-04-28] MEDS: CARVEDILOL 6.25 MG TABLET PO SCH ×2 (15:30→20:04)
[2017-04-28] MEDS: NYSTATIN 500,000 UNIT/5 ML UDCUP PO SCH ×2 (15:31→20:04)
[2017-04-28 15:38] LABS: Risk Ratio 3.42; VLDL CHOLESTEROL 25.8 MG/DL
[2017-04-28] MEDS ORDERED: MAGNESIUM SULF RIDER 2 GM in PREMIX 1 EACH IV PRN (16:25)
[2017-04-28] MEDS ORDERED: MAGNESIUM SULF RIDER 4 GM in PREMIX 1 EACH IV PRN (16:25)
[2017-04-28] MEDS: PANTOPRAZOLE 40 MG VIAL IV SCH (16:45)
[2017-04-28] MEDS: ENOXAPARIN 40 MG/0.4 ML SYRINGE SUBCUT SCH (16:45)
[2017-04-28] MEDS: POTASSIUM CHLORIDE RIDER 10 MEQ in PREMIX 1 EACH IV PRN ×3 (16:50→18:48)
[2017-04-28] MEDS ORDERED: cefTRIAXone 1,000 MG in SODIUM CHLORIDE 0.9% 100 ML IV SCH (21:00)
[2017-04-28] MEDS ORDERED: LISINOPRIL 20 MG TABLET PO ONE (21:17)
[2017-04-28] MEDS: cefTRIAXone 1,000 MG in SODIUM CHLORIDE 0.9% 100 ML IV SCH (22:13)
[2017-04-29] MEDS: ALBUTEROL/IPRATROPIUM 3 ML NEB RESP TX SCH ×5 (03:57→20:45)
[2017-04-29] MEDS: MORPHINE 2 MG/1 ML SYRINGE IV PRN ×4 (05:06→21:20)
[2017-04-29 06:05] LABS: Basophils % 0.4 % (0.0-0.8); Eosinophils # 0.7 10*3/uL (0.0-0.87); Eosinophils % 9.9 % (0.00-10.9); Hematocrit 31.6 VOL% (42.0-52.0); Hemoglobin 9.8 GM/DL (14.0-18.0); Immature Granulocytes % 0.4 %; Immature Granulocytes Absolute 0.03 #; Lymphocytes # 0.8 10*3/uL (1.4-4.0); Lymphocytes % 12.4 % (21.2-54.2); Mean Corpuscular Hemoglobin 26 PG (27-34); Mean Corpuscular Volume 84.7 FL (87-102); Mean Platelet Volume 10.2 FL (9.6-12.0); Monocytes # 0.7 10*3/uL (0.11-0.8); Monocytes % 9.6 % (1.7-12.7); NRBC # 0.02 10*3/uL; Neutrophils # 4.6 10*3/uL (1.4-7.4); Neutrophils % 67.3 % (38.7-73.9); Platelet Count 176 T/CUMM (130-400); Red Blood Count 3.73 MC/CUMM (3.8-5.5); Red Cell Distribution Width 18.9 % (9.3-17.3); White Blood Count 6.8 T/CUMM (4-12)
[2017-04-29 06:41] LABS: Albumin 2.8 G/DL (3.4-5.0); Bilirubin,Total 0.4 MG/DL (0.2-1.0); Calcium 8.5 MG/DL (8.5-10.1); Osmolality,Calculated 276.5 MOS/KG (273-304); Potassium 3.6 MMOL/L (3.5-5.1); Total Protein 6.2 G/DL (6.4-8.3)
[2017-04-29] MEDS: traMADol 50 MG TABLET PO PRN ×2 (07:36→14:59)
--- NOTE | 2017-04-29 08:24 | General Surgery Consult Note ---
Assessment and Plan - Time spent with patient Time spent with patient: Greater than 30 minutes (1) Cholelithiases Status: Chronic Assessment and plan: He appears to have chronic cholecystitis with cholelithiasis. His symptoms are very chronic and have been more of a subacute worsening over the last several weeks. I feel like there is a mass-effect in the right upper quadrant. I suspect with his age chronic problems and chronicity of symptoms that this gallbladder is likely not going to be amenable to a laparoscopic approach and will require an open procedure. This is made worse by his previous abdominal surgery and midline hernias. I discussed the option of percutaneous drainage with him and I will consult interventional radiology to consider this. Please note that this is a late entry and I saw the patient actually this morning. I was unable to put in my assessment and plan because the computer would not allow me to use this part of the record at the same time as other providers. Current Visit: Yes Qualifiers: Cholelithiasis location: gallbladder Cholecystitis presence: with cholecystitis Cholecystitis acuity: chronic Biliary obstruction: with biliary obstruction Qualified Code(s): K80.11 - Calculus of gallbladder with chronic cholecystitis with obstruction (2) Pleural effusion, right Problem details: small on CXR Status: Resolved Assessment and plan: This will increase his perioperative risk. His CT scan ordered this morning shows collapse of his right lower lobe and right middle lobe. We will consult Dr. Kumar for this finding. Current Visit: No History of Present Illness Chief complaint: Abdominal pain History of present illness: Mr. Tenorio is a 77 year old male He has had vague upper abdominal pain right and left-sided and epigastric for the last year. He says that this became worse about 2 weeks ago and has become more localized to the right upper quadrant. The pain is constant and radiates to his back. It is worse with meals. When he eats he has nausea and vomiting. He had an ultrasound showing gallstones and thickened gallbladder. His common bile duct was normal. He had a HIDA scan which did show delayed filling of his gallbladder and a 0% ejection fraction and some nausea with ingestion of Ensure. He has not had fever or chills. He has multiple other medical problems and was actually admitted with some lactic acidosis. Home Medications Medication Instructions Recorded Confirmed Type Albuterol Neb [Proventil Neb] 2.5 mg RESP TX QID 05/17/15 04/27/17 History Albuterol Sulfate [Proair HFA] 2 puff INH Q4HR PRN 05/17/15 04/27/17 History Esomeprazole Magnesium [Nexium] 40 mg PO DAILY 05/17/15 04/27/17 History Insulin Glargine [Lantus] 70 unit SUBCUT BEDTIME 05/17/15 04/27/17 History Tramadol HCl [Tramadol Tab] 100 mg PO Q6H PRN 05/17/15 04/27/17 History Furosemide Tab [Lasix Tab] 40 mg PO BID #60 tablet 11/01/15 04/27/17 Rx Lisinopril 20 mg PO DAILY #0 11/01/15 04/27/17 Rx Ferrous Sulfate Tab [Feosol 325 mg PO BID tablet 02/01/16 04/27/17 Rx Original Tab] Insulin Lispro [HumaLOG KwikPen] 16 unit SUBCUT TID 10/02/16 04/27/17 History Carvedilol 6.25 mg PO BID 11/02/16 04/27/17 History Gabapentin Cap/Tab [Neurontin 200 mg PO BID 11/02/16 04/27/17 History Cap/Tab] Metformin HCl 1,000 mg PO BID W/MEALS 11/02/16 04/27/17 History Azelastine Nasal 137 Mcg/[place] 2 spray BOTH NARES BID #1 nasal 11/03/16 Rx [Astelin Nasal [place]] spray Magnesium Oxide 400 mg PO BID #30 tablet 11/03/16 04/27/17 Rx Potassium Chloride Cap/Tab [K Dur] 10 meq PO DAILY #30 tablet 11/03/16 04/27/17 Rx Aspirin EC Tab 81 mg PO DAILY 04/27/17 04/27/17 History B-Complex with Vitamin C [Vitamin 1 each PO DAILY 04/27/17 04/27/17 History B-Complex with Vit C] Cholecalciferol (Vitamin D3) 5,000 unit PO DAILY 04/27/17 04/27/17 History [Vitamin D3] Ciprofloxacin HCl [Ciprofloxacin 500 mg PO DAILY 04/27/17 04/27/17 History Tab] Nystatin [Nystatin Oral Susp] 500,000 unit PO BID 04/27/17 04/27/17 History Allergies Allergy/AdvReac Type Severity Reaction Status Date / Time codeine Allergy RASH Verified 10/23/15 21:45 ibuprofen Allergy RASH Verified 10/23/15 21:45 Medical,Surgical,& Family Hx - Medical History Cardio: History of: Cardiac Dysrhythmia (atrial fibrillation, history of), CHF, Hypertension, PVD (stent placement in legs), Cardiovascular Problems (stents in legs) No history of: Pacemaker Psychological: No history of: Anxiety Disorders Neurology: History of: Cerebrovascular Accident, Vertigo No history of: Seizures HEENT: History of: Ear Problem (HARD OF HEARING), Eye Problem (BILATERAL IMPLANTS,CATERACTS), HEENT Problems (DRY MOUTH) Endocrine: History of: Diabetes Mellitus (IDDM) Rheumatology: History of;: Rheumatoid Arthritis (ALL OVER), Rheumatological Problems Respiratory: History of: Asthma, Bronchitis, COPD, Pneumonia, Respiratory Problems Genitourinary: History of: Prostate Problems Gastrointestinal: History of: GERD, GI Problems Musculoskeletal: History of: Back/Neck Problems, Musculoskeletal Problems ( LOWER BACK AND BILATERAL KNEES) Hematology: History of: Anemia No history of: Blood Transfusion Reaction - Surgical History Cardiac Surgeries: Sugical HX of: Cardiac Catheterization, Carotid Endarterectomy (BILATERAL) Thoracic Surgeries: Patient denies;: Lobectomy Neurologic Surgeries: Patient denies: Neurologic Surgery HEENT Surgeries: Surgical HX of: Carotid Endarterectomy (BILATERAL), Eye Surgery Patient denies: Thyroid Surgery, Tonsilectomy & Adenoidectomy Abdominal Surgeries: Surgical HX of: Abdominal Surgery (BOWEL RESECTION DUE TO BLUNT TRAUMA AT 12 Y/O), Appendectomy Reproductive Surgeries: Patient denies;: Genitourinary Surgery Orthopedic Surgeries: Surgical HX of;: Spinal Surgery (lumbar) - Family History Family History: Reports;: Family Cancer (SON), Family Diabetes (DAD,AUNT, DAUGHTER), Family Heart Disease, Family Hypertension, Family Stroke - Social History Smoking Status: Former smoker Frequency of Alcohol Use: None Type of Drug Use: None - Constitutional Constitutional: Present: anorexia. Absent: chills, fever(s), weight loss - EENT Nose, mouth and throat: Absent: dysphagia, hoarseness - Cardiovascular Cardiovascular: Present: dyspnea, dyspnea on exertion. Absent: chest pain at rest, chest pain with activity - Respiratory Respiratory: Present: dyspnea, dyspnea on exertion. Absent: hemoptysis - Gastrointestinal Gastrointestinal: Present: abdominal pain, bloating, nausea, vomiting. Absent: cramping, diarrhea, hematemesis, hematochezia, melena, jaundice - Genitourinary Genitourinary: Absent: hematuria - Musculoskeletal Musculoskeletal: Present: back pain - Neurological Neurological: Absent: focal weakness, syncope - Endocrine Endocrine: Absent: polyuria Hematologic/Lymphatic: Absent: easy bleeding, easy bruising Exam - Constitutional Vitals: Period Temp Pulse Resp BP Sys/Interiano Pulse Ox Last 24 Hr 97.0 F-99.2 F 48-102 15-29 95-183/44-94 86-100 General appearance: no acute distress, morbidly obese - Head Head exam: Present: normocephalic - Eye Eye exam: Absent: scleral icterus - ENT Mouth exam: Present: normal voice - Neck Neck exam: Present: trachea midline - Respiratory Respiratory exam: Present: clear to auscultation bilaterally. Absent: accessory muscle use - Cardiovascular Cardiovascular exam: Present: RRR - GI/Abdominal GI/Abdominal exam: Present: mass, soft. Absent: distended, guarding, Barakat's sign, tenderness, rebound - Extremities Exam Extremities exam: Absent: edema - Neurological Exam Neurological exam: Present: alert, oriented X3. Absent: motor sensory deficit Speech: Present: normal - Skin Skin exam: Present: normal color Results - Labs CBC & BMP: 04/29/17 05:00 04/29/17 05:00 Lab Results: I have reviewed the past 24 hour labs - Diagnostic Findings Procedure: Chest x-ray: report reviewed by me
--- NOTE | 2017-04-29 08:25 | Internal Med Progress Note ---
Assessment and Plan (1) Abdominal pain Status: Acute Assessment and plan: 77-year-old male admitted to acute care * Acute abdominal pain associated with nausea and vomiting. Patient has cholelithiasis with cholecystitis. He will be seen by general surgery for possible surgery. Patient has multiple risk factors and may do better with cholecystotomy tube placement. Dr. Salinas CEVALLOS will make the determination * Uncontrolled diabetes. Partly from noncompliance with medications and partially from nausea and vomiting. His blood sugars are much better controlled * CHF with preserved ejection fraction. Will watch his input and output and daily weights * Hypertension. Continue current treatment * Diffuse coronary artery disease. Patient had a cardiac cath in September of this year. Medical management * History of diabetic foot. Stable * Low back and upper back pain. Will check x-ray * Discussed with patient's daughter and patient himself Current Visit: Yes (2) Atrial fibrillation Status: Chronic Current Visit: Yes Qualifiers: Atrial fibrillation type: chronic Qualified Code(s): I48.2 - Chronic atrial fibrillation (3) Cholelithiases Status: Chronic Current Visit: Yes Qualifiers: Cholelithiasis location: gallbladder Cholecystitis presence: with cholecystitis Cholecystitis acuity: acute and chronic Biliary obstruction: with biliary obstruction Qualified Code(s): K80.13 - Calculus of gallbladder with acute and chronic cholecystitis with obstruction (4) Congestive heart failure Status: Chronic Current Visit: Yes (5) Diabetes Status: Chronic Current Visit: Yes Qualifiers: Diabetes mellitus type: type 2 Diabetes mellitus complication status: with hyperglycemia Diabetes mellitus 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 Chart reviewed. Patient is 77-year-old male with history of uncontrolled diabetes, peripheral neuropathy, osteoarthritis, hypertension, dyslipidemia, COPD, peripheral arterial disease with history of stents in his legs, carotid artery disease, chronic atrial fibrillation, coronary artery disease. He was admitted with epigastric abdominal pain along with nausea vomiting for several days. He was found to have cholelithiasis which is known and abnormal biliary scan. Patient will want to have blood sugar over 600 and was started on insulin infusion. He was corrected quickly and insulin infusion was stopped. Patient has not been taking his medications. His nausea and vomiting has improved. He denies any chest pain or shortness of breath. He denies any vomiting. He denies any fever or chills. He is complaining of back pain. States that he had a fall few weeks ago Exam (Progress Note) - Constitutional Vitals: Period Temp Pulse Resp BP Sys/Interiano Pulse Ox Last 24 Hr 97.0 F-99.2 F 48-102 15-29 95-183/44-94 86-100 Exam: Examination: GENERAL: Obese white male HEENT: PERRLA. EOMI. Mucous membranes are moist. NECK: Neck is supple. No JVD. No carotid bruit. No thyromegaly. CVS: Irregularly irregular rhythm. S1 and S2 are normal RESPIRATORY: Lungs are clear. No rales or rhonchi. ABDOMEN: Soft but tender especially in the right upper quadrant. Masses palpable. Bowel sounds are EXT: 1+ edema. Peripheral pulses are present. ASSISTANT PROGRAM MANAGER: Patient is awake, alert and oriented to time place and person. Cranial nerves II through XII are grossly intact. Motor strength is 4/5 SKIN: Warm and dry. MSK: No obvious deformity. Examination: Results - Labs CBC & BMP: 04/29/17 05:00 04/29/17 05:00 Lab Results: I have reviewed the past 24 hour labs
[2017-04-29] MEDS: INSULIN REGULAR 100 UNIT/ML SUBCUT SCH ×4 (08:35→21:19)
[2017-04-29] MEDS: INSULIN GLARGINE 100 UNIT/ML SUBCUT SCH ×2 (08:47→21:19)
[2017-04-29] MEDS: GABAPENTIN 100 MG CAPSULE PO SCH ×2 (08:48→21:18)
[2017-04-29] MEDS: LISINOPRIL 20 MG TABLET PO SCH (08:48)
[2017-04-29] MEDS: POTASSIUM CHLORIDE 20 MEQ TABLET PO SCH (08:48)
[2017-04-29] MEDS: PANTOPRAZOLE 40 MG VIAL IV SCH (08:48)
[2017-04-29] MEDS: FUROSEMIDE 40 MG/4 ML VIAL IV SCH ×2 (08:48→17:46)
[2017-04-29] MEDS: CARVEDILOL 6.25 MG TABLET PO SCH ×2 (08:49→21:18)
[2017-04-29] MEDS: ASPIRIN EC 81 MG TABLET PO SCH (08:49)
[2017-04-29] MEDS: MAGNESIUM OXIDE 400 MG TABLET PO SCH ×2 (08:49→21:18)
[2017-04-29] MEDS: DOCUSATE SODIUM 100 MG CAPSULE PO SCH ×2 (08:49→21:18)
[2017-04-29] MEDS: traZODone 50 MG TABLET PO SCH ×2 (08:49→21:18)
[2017-04-29] MEDS: NYSTATIN 500,000 UNIT/5 ML UDCUP PO SCH ×2 (08:50→21:18)
[2017-04-29] MEDS: AZELASTINE NASAL 137 MCG/SPRAY 30 ML BOTTLE BOTH NARES SCH ×2 (08:52→21:19)
[2017-04-29] MEDS: LEVOFLOXACIN INJ 500 MG in PREMIX 1 EACH IV SCH (08:52)
[2017-04-29] MEDS: SODIUM CHLORIDE 0.9% 1,000 ML IV SCH ×2 (09:13→23:50)
[2017-04-29] MEDS: ONDANSETRON 4 MG/2 ML VIAL IV PRN ×3 (09:48→17:46)
--- NOTE | 2017-04-29 12:10 | CT Report ---
CT of the abdomen and pelvis with intravenous contrast. Oral contrast was administered. 100 cc Optiray 350 axial images were obtained with sagittal and coronal reconstructions. No prior studies. The heart size is normal. There is a prominent epicardial fat pad. There is a small pericardial effusion. Coronary artery calcification is present. There is calcific change present within the aortic valve. There is calcification present within the mitral annulus. There is a large right-sided pleural effusion and a moderate left-sided pleural effusion. There is near total collapse of the right lower lobe, with partial aeration of the right middle lobe. There is atelectasis involving the left lower lobe. The liver is normal in size. There is fatty infiltration of the liver. Layering material seen within the gallbladder, sludge versus tiny stones. Anterior to the right lobe of the liver, there is a calcified density present measuring 19 mm, not definitely connected to the bowel or the liver. The spleen is normal in size. The spleen contains multiple granulomas. The left adrenal gland is mildly nodular without a discrete mass identified. The right adrenal gland is normal in size and configuration. The kidneys are normal in size, location, and contour. There is very extensive renal artery calcification which makes it difficult to exclude tiny renal calculi. No hydronephrosis is seen. No discrete mass identified. There is heavy plaque present within the aorta. There is extension into the SMA and both renal arteries. Bilateral iliac artery stents have been placed. There is no free air or free fluid present within the peritoneal cavity. A Sanford catheter is in place within the colon. The stomach is collapsed. The loops of small intestine are not dilated. No small intestinal wall thickening is seen. The terminal ileum presents a normal appearance. The colon is not dilated. There is no colonic wall thickening. There are diverticuli noted throughout the colon. The prostate gland is not enlarged. The urinary bladder is collapsed around a Sanford catheter. Degenerative changes are noted in the lower lumbar spine. Impression: 1. Large right and medium-sized left pleural effusion, with significant basilar atelectasis. 2. Layering material within the gallbladder, tiny stones versus sludge. 3. Evidence of previous granulomatous disease. 4. Nonspecific coarse calcification in the right lower quadrant, appears to be separate from the liver and bowel. The CT exam was performed using one or more of the following dose reduction techniques: Automated exposure control, adjustment of the mA and/or kV according to patient size, or use of iterative reconstruction technique. PROCEDURE INTERPRETED AT [facility] DEPARTMENT OF RADIOLOGY Final Report Signed by: Dr. Tiffany Estevez
--- NOTE | 2017-04-29 12:14 | Inventional Radiology Consult ---
Assessment and Plan - Time spent with patient Time spent with patient: Less than 30 minutes (1) Abnormal biliary HIDA scan Problem details: 0% ejection fraction Status: Acute Assessment and plan: no fever or elevated WBC but with abnl Hida and RUQ pain will defer surgery due to morbid obesity and other comorbidities for GB drain for now also plan for PICC Risks and benefits discussed ASA III Current Visit: Yes IR Consult - Data of Consult Patient: new to practice Consult date: 04/29/17 Requesting Physician: Ramiro Niño III. - Consult Narrative Reason for consult: possible cholecystitis, not a surgical candidate History of present illness: is a 77 year old M admitted with abdominal pain Nausea vomiting and history of gallstones. The mid with shortness of breath, congestive heart failure and history of peripheral vascular disease with atrial fibrillation and diabetes. Evaluation of upper quadrant pain demonstrates a mildly dilated gallbladder with suggestive wall thickening ultrasound. The ejection fraction on the nuclear medicine study was 0%, most compatible with nonfunctioning gallbladder. However, the patient has no white count or fever and is currently not on any blood pressure support and is being transferred from the ICU to the floor. - Home Medications and Allergies Home Medications: Home Medications Medication Instructions Recorded Confirmed Type Albuterol Neb [Proventil Neb] 2.5 mg RESP TX QID 05/17/15 04/27/17 History Albuterol Sulfate [Proair HFA] 2 puff INH Q4HR PRN 05/17/15 04/27/17 History Esomeprazole Magnesium [Nexium] 40 mg PO DAILY 05/17/15 04/27/17 History Insulin Glargine [Lantus] 70 unit SUBCUT BEDTIME 05/17/15 04/27/17 History Tramadol HCl [Tramadol Tab] 100 mg PO Q6H PRN 05/17/15 04/27/17 History Furosemide Tab [Lasix Tab] 40 mg PO BID #60 tablet 11/01/15 04/27/17 Rx Lisinopril 20 mg PO DAILY #0 11/01/15 04/27/17 Rx Ferrous Sulfate Tab [Feosol 325 mg PO BID tablet 02/01/16 04/27/17 Rx Original Tab] Insulin Lispro [HumaLOG KwikPen] 16 unit SUBCUT TID 10/02/16 04/27/17 History Carvedilol 6.25 mg PO BID 11/02/16 04/27/17 History Gabapentin Cap/Tab [Neurontin 200 mg PO BID 11/02/16 04/27/17 History Cap/Tab] Metformin HCl 1,000 mg PO BID W/MEALS 11/02/16 04/27/17 History Azelastine Nasal 137 Mcg/[place] 2 spray BOTH NARES BID #1 nasal 11/03/16 Rx [Astelin Nasal [place]] spray Magnesium Oxide 400 mg PO BID #30 tablet 11/03/16 04/27/17 Rx Potassium Chloride Cap/Tab [K Dur] 10 meq PO DAILY #30 tablet 11/03/16 04/27/17 Rx Aspirin EC Tab 81 mg PO DAILY 04/27/17 04/27/17 History B-Complex with Vitamin C [Vitamin 1 each PO DAILY 04/27/17 04/27/17 History B-Complex with Vit C] Cholecalciferol (Vitamin D3) 5,000 unit PO DAILY 04/27/17 04/27/17 History [Vitamin D3] Ciprofloxacin HCl [Ciprofloxacin 500 mg PO DAILY 04/27/17 04/27/17 History Tab] Nystatin [Nystatin Oral Susp] 500,000 unit PO BID 04/27/17 04/27/17 History Allergies/Adverse Reactions: Allergies Allergy/AdvReac Type Severity Reaction Status Date / Time codeine Allergy RASH Verified 10/23/15 21:45 ibuprofen Allergy RASH Verified 10/23/15 21:45 12 point system: reviewed and no additional remarkable complaints except as stated Medical,Surgical,& Family Hx - Medical History Cardio: History of: Cardiac Dysrhythmia (atrial fibrillation, history of), CHF, Hypertension, PVD (stent placement in legs), Cardiovascular Problems (stents in legs) No history of: Pacemaker Psychological: No history of: Anxiety Disorders Neurology: History of: Cerebrovascular Accident, Vertigo No history of: Seizures HEENT: History of: Ear Problem (HARD OF HEARING), Eye Problem (BILATERAL IMPLANTS,CATERACTS), HEENT Problems (DRY MOUTH) Endocrine: History of: Diabetes Mellitus (IDDM) Rheumatology: History of;: Rheumatoid Arthritis (ALL OVER), Rheumatological Problems Respiratory: History of: Asthma, Bronchitis, COPD, Pneumonia, Respiratory Problems Genitourinary: History of: Prostate Problems Gastrointestinal: History of: GERD, GI Problems Musculoskeletal: History of: Back/Neck Problems, Musculoskeletal Problems ( LOWER BACK AND BILATERAL KNEES) Hematology: History of: Anemia No history of: Blood Transfusion Reaction - Surgical History Cardiac Surgeries: Sugical HX of: Cardiac Catheterization, Carotid Endarterectomy (BILATERAL) Thoracic Surgeries: Patient denies;: Lobectomy Neurologic Surgeries: Patient denies: Neurologic Surgery HEENT Surgeries: Surgical HX of: Carotid Endarterectomy (BILATERAL), Eye Surgery Patient denies: Thyroid Surgery, Tonsilectomy & Adenoidectomy Abdominal Surgeries: Surgical HX of: Abdominal Surgery (BOWEL RESECTION DUE TO BLUNT TRAUMA AT 12 Y/O), Appendectomy Reproductive Surgeries: Patient denies;: Genitourinary Surgery Orthopedic Surgeries: Surgical HX of;: Spinal Surgery (lumbar) - Family History Family History: Reports;: Family Cancer (SON), Family Diabetes (DAD,AUNT, DAUGHTER), Family Heart Disease, Family Hypertension, Family Stroke - Social History Smoking Status: Former smoker Frequency of Alcohol Use: None Type of Drug Use: None Exam - Labs CBC & BMP: 04/29/17 05:00 04/29/17 05:00 Lab Results: I have reviewed the past 24 hour labs Image Studies: CT abd/pel done today u/s and NM GB studies - Constitutional Vitals: Period Temp Pulse Resp BP Sys/Interiano Pulse Ox Last 24 Hr 97.0 F-99.2 F 48-102 15-29 95-183/44-99 86-100 General appearance: over weight, morbidly obese - Eye Eye exam: Present: EOMI - Respiratory Respiratory exam: Present: chest wall tenderness, decreased breath sounds, prolonged expiratory phase - Cardiovascular Cardiovascular exam: Present: regular rate and rhythm - GI/Abdominal GI/Abdominal exam: Present: tenderness (RUQ). Absent: mass - Neurological Exam Neurological exam: Present: alert, oriented X3 - Psychiatric Psychiatric exam: Present: normal affect, normal mood - Skin Skin exam: Present: normal color, dry
[2017-04-29] MEDS ORDERED: ONDANSETRON 4 MG/2 ML VIAL ONE (13:18)
--- NOTE | 2017-04-29 13:44 | Physician Query Form ---
CLICK EDIT DOCUMENT TO SELECT QUERY ANSWER --> OK --> SIGN Kim Castro RN Clinical Computer Technologist W) [phone] (f) [phone] [email or web address] PROVIDERS: Make your selection(s) from the choices in EACH section by typing an "x" and enter comments in the comment section. Please use your independent medical judgment in providing your response. This request does not imply that any particular answer is desired or expected. CLINICAL INDICATORS: (Providers should not edit this section) Based on documentation of "CHF with preserved ejection fraction", [id number], Echo done 10/02/16 showed EF of 60%. Pt. treated with IV Lasix. CXR showed CHF. Please provide further specificity regarding CHF. ACUITY: ( x) Acute ( ) Chronic ( ) Acute on Chronic ( ) Clinically unable to determine TYPE: ( ) Systolic (HFrEF - heart failure with reduced systolic function/EF) (x ) Diastolic (HFpEF - heart failure with preserved systolic function/EF) ( ) Combined Systolic/Diastolic ( ) Other, please specify: ( ) Clinically unable to determine ( ) Past Medical History of Systolic CHF ( x) Past Medical History of Diastolic CHF ( ) Clinically unable to determine COMMENTS: PLEASE ALSO DOCUMENT RESPONSE IN PROGRESS NOTES AND/OR DISCHARGE SUMMARY Use of terms such as suspected, likely, or probable (associated with a specific diagnosis that is being evaluated, monitored, or treated as if it exists) are acceptable and can be restated in the discharge summary if not ruled out. MTDD
--- NOTE | 2017-04-29 15:14 | Gastrointestinal Progress Note ---
Assessment and Plan (1) Abdominal pain Status: Acute Assessment and plan: 04/29-onset of abdominal pain with findings of stones versus sludge in the gallbladder with HIDA scan was 0% EF. LFTs remain unremarkable. Lipase is 66. Afebrile without leukocytosis. Now post percutaneous cholecystostomy tube placement. Continue to monitor at this time. Plan an addendum to followed by Dr. Avila Current Visit: Yes Gastroenterology - PN: Subj Interval history: CC: Abdominal pain Patient is seen, awake but somewhat groggy under the effects of pain medication. He is post percutaneous cholecystostomy tube placement earlier today. He is complaining of some mild discomfort at the tube site but denies severe pain. Denies any nausea or vomiting. He is afebrile. Pt is without leukocytosis. ROS: Denies SOB or chest pain Exam (Progress Note) - Constitutional Vitals: Period Temp Pulse Resp BP Sys/Interiano Pulse Ox Last 24 Hr 97.0 F-99.2 F 48-102 15-29 95-196/44-120 86-100 General appearance: normal weight, no acute distress - Head Head exam: Present: normal inspection, normocephalic - Eye Eye exam: Present: other (lids and conjunctiva unremarkable ). Absent: scleral icterus - ENT ENT exam: Present: normal exam, normal oropharynx - Neck Neck exam: Present: normal inspection - Respiratory Respiratory exam: Present: clear to auscultation bilaterally. Absent: rales, rhonchi, wheezes - Cardiovascular Cardiovascular exam: Present: regular rate and rhythm. Absent: diastolic murmur , JVD, systolic murmur - GI/Abdominal GI/Abdominal exam: Present: normal bowel sounds, soft. Absent: ascites, distended, mass, organomegaly, tenderness - Extremities Exam Extremities exam: Present: normal inspection, full ROM - Back Exam Back exam: Present: normal inspection - Neurological Exam Neurological exam: Present: alert, oriented X3 - Psychiatric Psychiatric exam: Present: normal affect, normal mood - Skin Skin exam: Present: normal color, warm, dry Results - Labs CBC & BMP: 04/29/17 05:00 04/29/17 05:00 Lab Results: I have reviewed the past 24 hour labs
--- NOTE | 2017-04-29 15:17 | Post Interventional Procedure ---
Pre-op diagnosis: RUQ pain no GB function an dpoor venous access Post-op diagnosis: same Procedure: Cholecystostomy tube placement PICC placement Contrast: none Flouroscopy: 1.5 min Radiologist: Dinesh Roberts Anesthesia: local Specimens: none sent Estimated blood loss: none Complications: none Condition: stable Description/Findings: right arm 5 Fr dual lumen picc placement done and ready to use Assessment and Plan - Time spent with patient Time spent with patient: Less than 30 minutes (1) Abnormal biliary HIDA scan Problem details: 0% ejection fraction Status: Acute Assessment and plan: no fever or elevated WBC but with abnl Hida and RUQ pain will defer surgery due to morbid obesity and other comorbidities for GB drain for now also plan for PICC Risks and benefits discussed ASA III post procedure: PICC and GB drain catheter placement complete Current Visit: Yes
--- NOTE | 2017-04-29 15:23 | Interventional Radiology Rpt ---
IR PICC line insertion, US guide vascular access IR PICC Placement Peripherally-inserted central catheter (PICC) placement using ultrasound and fluoroscopic guidance Ultrasound of the right upper extremity Clinical Information: 77-year-old male with diabetes, heart failure, nausea vomiting and probable cholecystitis. Limited venous access. PICC line is requested. Physician: Dr. Roberts Procedure: The patient was advised of the benefits, risks, and alternatives of the procedure and informed consent was obtained. A time out was performed with verification of the patient's name, MRN, site of procedure, and type of procedure to be performed. The patient was positioned in the supine position on the angiographic table. The site was prepped and draped in the usual sterile fashion. Additionally, maximal sterile barrier technique was employed for the procedure. A reading recovery teacher radiograph reveals moderate right-sided pleural effusion and right atelectasis. Ultrasound examination of the right arm demonstrates patent and compressible brachial and basilic veins. The right arm was prepped and draped in the usual sterile fashion. The right basilic vein was again identified. Using ultrasound guidance, a 21 gauge needle was used to access the vein. A permanent ultrasound recording of vascular access was obtained for the patient's record. A 0.018" cope wire was then advanced into the vein. The needle was exchanged for a 5 Kisw[place]ili peel-away sheath. A 5 K[place] double lumen Bard Solo PICC catheter was measured and trimmed to the 43 cm daniella. The PICC line was advanced through the sheath and into the central circulation. The catheter tip was positioned at the cavo-atrial junction. The peel-away sheath was then removed. At the conclusion of the procedure, the catheter was secured in place using a Stat-Lock device. A sterile dressing was applied. The lumens aspirate and flush freely. The catheter is ready for immediate use. The patient tolerated the procedure well and was returned to the PRU in stable condition. EBL: < 5 mL. Complications: None. Fluoroscopy time: 1.5 minutes Total number of images for this study: 4 Conclusion: Successful placement of a 5 Kisw[place]ili double lumen Bard Solo power injectable PICC via the right basilic vein. The catheter is ready for immediate use. PROCEDURE INTERPRETED AT [facility] DEPARTMENT OF RADIOLOGY Final Report Signed by: Dinesh Roberts
--- NOTE | 2017-04-29 15:28 | Interventional Radiology Rpt ---
IR cholecystostomy complete Cholecystostomy catheter placement using ultrasound and fluoroscopic guidance Cholecystogram Abdominal ultrasound Clinical Information: The patient is not a surgical candidate due to multiple comorbidities including prior abdominal surgery, obestiy, diabetes, large right pleural effusion. 0% GB ejection fraction noted on NM HIDA scan. Physician[s]: Dr. Roberts Procedure: The patient was advised of the benefits, risks, and alternatives of the procedure and informed consent was obtained. A time out was performed with verification of the patient's name, MRN, site of procedure, and type of procedure to be performed. The patient was positioned in the supine position on the angiographic table. The site was prepped and draped in the usual sterile fashion. Local anesthesia only used for the procedure. A bake room worker radiograph reveals no relevant abnormality. A preliminary ultrasound of the abdomen demonstrates distended gallbladder. The overlying soft tissues were anesthetized with lidocaine. A 20 G single wall needle was passed into the gallbladders under sonographic guidance. A cholecystogram was performed to confirm the needle tip location. An Amplatz wire was then inserted into the gallbladder under fluoroscopic guidance. An 8 Citizen Of [place] Cook all-purpose drain was passed into the gallbladder over the wire. The pigtail was formed and locked in position. A final cholecystogram was performed demonstrating the pigtail appropriately positioned with the gallbladder lumen. The gallbladder appears mildly dilated with multiple filling defects suggestive of stones. The cystic duct is not visualized. A fluid sample was aspirated and sent to the laboratory for analysis. The catheter was sutured in position with a Percu-stay device and a sterile dressing applied. The catheter was placed to gravity drainage. The patient tolerated the procedure well and was returned to the PRU in stable condition. EBL: < 5 mL. Complications: None. Conclusion: 1. Ultrasound of the abdomen demonstrates dilated gallbladder with multiple stones. 2. Cholecystogram demonstrates similar findings. 3. Successful cholecystostomy catheter placement. 4. The catheter should be flushed daily with 5 ml normal saline daily. 5. If the patient remains non-operative, the catheter can be evaluated after 6 weeks for possible removal. PROCEDURE INTERPRETED AT [facility] DEPARTMENT OF RADIOLOGY Final Report Signed by: Dinesh Roberts
[2017-04-29] MEDS: ENOXAPARIN 40 MG/0.4 ML SYRINGE SUBCUT SCH (17:47)
[2017-04-29] MEDS: PROMETHAZINE 25 MG/1 ML VIAL IM PRN (21:20)
[2017-04-29] MEDS: cefTRIAXone 1,000 MG in SODIUM CHLORIDE 0.9% 100 ML IV SCH (21:44)
[2017-04-30] MEDS: MORPHINE 2 MG/1 ML SYRINGE IV PRN (00:40)
[2017-04-30] MEDS: ALBUTEROL/IPRATROPIUM 3 ML NEB RESP TX SCH ×7 (00:40→23:47)
[2017-04-30] MEDS: SODIUM CHLORIDE 0.9% 1,000 ML IV SCH ×2 (06:18→16:25)
[2017-04-30 06:43] LABS: Basophils % 0.3 % (0.0-0.8); Eosinophils # 0.3 10*3/uL (0.0-0.87); Eosinophils % 4.4 % (0.00-10.9); Hematocrit 31.1 VOL% (42.0-52.0); Hemoglobin 9.7 GM/DL (14.0-18.0); Immature Granulocytes % 0.5 %; Immature Granulocytes Absolute 0.04 #; Lymphocytes # 0.8 10*3/uL (1.4-4.0); Lymphocytes % 11.2 % (21.2-54.2); Mean Corpuscular HGB Conc 31.2 GM/DL (32-36); Mean Corpuscular Hemoglobin 26 PG (27-34); Mean Corpuscular Volume 82.3 FL (87-102); Mean Platelet Volume 10.1 FL (9.6-12.0); Monocytes # 0.8 10*3/uL (0.11-0.8); Monocytes % 11.2 % (1.7-12.7); Neutrophils # 5.4 10*3/uL (1.4-7.4); Neutrophils % 72.4 % (38.7-73.9); Platelet Count 197 T/CUMM (130-400); Red Blood Count 3.78 MC/CUMM (3.8-5.5); Red Cell Distribution Width 18.6 % (9.3-17.3); White Blood Count 7.5 T/CUMM (4-12)
[2017-04-30 07:15] LABS: Albumin 2.8 G/DL (3.4-5.0); Bilirubin,Total 1.1 MG/DL (0.2-1.0); Calcium 8.7 MG/DL (8.5-10.1); Total Protein 6.6 G/DL (6.4-8.3)
[2017-04-30 07:16] LABS: Potassium 3.8 MMOL/L (3.5-5.1)
--- NOTE | 2017-04-30 08:23 | Internal Med Progress Note ---
Assessment and Plan (1) Abdominal pain Status: Acute Assessment and plan: 77-year-old male admitted to acute care * Acute abdominal pain associated with nausea and vomiting. Clinically better after cholecystotomy tube was placed * Uncontrolled diabetes. Better controlled * CHF with preserved ejection fraction. Will watch his input and output and daily weights * Hypertension. Continue current treatment * Diffuse coronary artery disease. Stable * History of diabetic foot. Stable * Low back and upper back pain. Better after cholecystotomy tube placement * Discussed with patient Current Visit: Yes (2) Atrial fibrillation Status: Chronic Current Visit: Yes Qualifiers: Atrial fibrillation type: chronic Qualified Code(s): I48.2 - Chronic atrial fibrillation (3) Cholelithiases Status: Chronic Current Visit: Yes Qualifiers: Cholelithiasis location: gallbladder Cholecystitis presence: with cholecystitis Cholecystitis acuity: chronic Biliary obstruction: with biliary obstruction Qualified Code(s): K80.11 - Calculus of gallbladder with chronic cholecystitis with obstruction (4) Congestive heart failure Status: Chronic Current Visit: Yes (5) Diabetes Status: Chronic Current Visit: Yes Qualifiers: Diabetes mellitus type: type 2 Diabetes mellitus complication status: with hyperglycemia Diabetes mellitus application developer manager insulin use: with penitentiary use Qualified Code(s): E11.65 - Type 2 diabetes mellitus with hyperglycemia; Z79.4 - FDC (current) use of insulin (6) Anemia Status: Chronic Current Visit: No Qualifiers: Other causes of anemia: chronic disease, other (7) Peripheral vascular disease Status: Chronic Current Visit: No Internal Medicine - PN: Subj Interval history: Patient seen and examined. He feels some better today. He still has some shortness of breath. His abdominal pain has improved. He had a cholecystotomy tube placed yesterday. He denies any chest pain. He has been confused according to the family. They want evaluation by [facility] service. Patient had an argument with his son this morning. Exam (Progress Note) - Constitutional Vitals: Period Temp Pulse Resp BP Sys/Interiano Pulse Ox Last 24 Hr 97.7 F-98.9 F 66-89 15-28 103-196/46-120 82-100 Exam: Examination: GENERAL: Obese white male HEENT: PERRLA. EOMI. NECK: Neck is supple. CVS: Irregularly irregular rhythm. S1 and S2 are normal RESPIRATORY: Better air entry. Still decreased breath sounds on the right base ABDOMEN: Soft and decreased tenderness. Bowel sounds are present. Cholecystotomy tube is in place EXT: 1+ edema. Peripheral pulses are present. WHEY DEPARTMENT OPERATOR: Patient is awake, alert but confused motor strength is 4/5 SKIN: Warm and dry. MSK: No obvious deformity. Results - Labs CBC & BMP: 04/30/17 06:00 04/30/17 06:00 Lab Results: I have reviewed the past 24 hour labs
--- NOTE | 2017-04-30 08:33 | General Surgery Progress Note ---
Assessment and Plan (1) Cholelithiases Status: Chronic Assessment and plan: He appears to have chronic cholecystitis with cholelithiasis. His symptoms are very chronic and have been more of a subacute worsening over the last several weeks. I feel like there is a mass-effect in the right upper quadrant. I suspect with his age chronic problems and chronicity of symptoms that this gallbladder is likely not going to be amenable to a laparoscopic approach and will require an open procedure. This is made worse by his previous abdominal surgery and midline hernias. I discussed the option of percutaneous drainage with him and I will consult interventional radiology to consider this. Please note that this is a late entry and I saw the patient actually this morning. I was unable to put in my assessment and plan because the computer would not allow me to use this part of the record at the same time as other providers. 04/30:Abdomen is better. Feels better and breathes better if sits up. Likely from ateletasis/pleural effusion. Continue drain which I can remove in my office in a week or so Current Visit: Yes Qualifiers: Cholelithiasis location: gallbladder Cholecystitis presence: with cholecystitis Cholecystitis acuity: chronic Biliary obstruction: with biliary obstruction Qualified Code(s): K80.11 - Calculus of gallbladder with chronic cholecystitis with obstruction Subjective Patient reports: Present: feels better, pain is less, shortness of breath. Absent: nausea, vomiting Exam - Constitutional Vitals: Period Temp Pulse Resp BP Sys/Interiano Pulse Ox Last 24 Hr 97.7 F-98.9 F 66-89 15-28 103-196/46-120 82-100 General appearance: no acute distress, morbidly obese - Head Head exam: Present: normocephalic - Eye Eye exam: Absent: scleral icterus - Respiratory Respiratory exam: Present: accessory muscle use - GI/Abdominal GI/Abdominal exam: Present: soft. Absent: distended, tenderness Results - Labs CBC & BMP: 04/30/17 06:00 04/30/17 06:00 Lab Results: I have reviewed the past 24 hour labs
--- NOTE | 2017-04-30 08:41 | Gastrointestinal Progress Note ---
Assessment and Plan (1) Abdominal pain Status: Acute Assessment and plan: 04/30-mild abdominal soreness post procedure. No other complaints this morning. Mild confusion per family. Continue to monitor present time. Plan an addendum to followed by Dr. Avila. 04/29-onset of abdominal pain with findings of stones versus sludge in the gallbladder with HIDA scan was 0% EF. LFTs remain unremarkable. Lipase is 66. Afebrile without leukocytosis. Now post percutaneous cholecystostomy tube placement. Continue to monitor at this time. Plan an addendum to followed by Dr. Avila Current Visit: Yes Gastroenterology - PN: Subj Interval history: CC: Abdominal pain Patient is seen, awake, mildly confused, with family at bedside. He reportedly had a restless night last night with some confusion. Patient complains of some mild abdominal tenderness at the cholecystostomy tube site. Continued bilious output noted. Patient is afebrile without nausea or vomiting. Tolerating small amounts of his diet at present time. Abdomen is soft, mild tenderness. Afebrile without leukocytosis. ROS: Denies shortness of breath or chest pain Exam (Progress Note) - Constitutional Vitals: Period Temp Pulse Resp BP Sys/Interiano Pulse Ox Last 24 Hr 97.7 F-98.9 F 66-89 15-28 103-196/46-120 82-100 - Other Additional findings: General appearance: normal weight, no acute distress - Head Head exam: Present: normal inspection, normocephalic - Eye Eye exam: Present: other (lids and conjunctiva unremarkable ). Absent: scleral icterus - ENT ENT exam: Present: normal exam, normal oropharynx - Neck Neck exam: Present: normal inspection - Respiratory Respiratory exam: Present: clear to auscultation bilaterally. Absent: rales, rhonchi, wheezes - Cardiovascular Cardiovascular exam: Present: regular rate and rhythm. Absent: diastolic murmur , JVD, systolic murmur - GI/Abdominal GI/Abdominal exam: Present: normal bowel sounds, soft. Absent: ascites, distended, mass, organomegaly, tenderness - Extremities Exam Extremities exam: Present: normal inspection, full ROM - Back Exam Back exam: Present: normal inspection - Neurological Exam Neurological exam: Present: alert, oriented X3 - Psychiatric Psychiatric exam: Present: normal affect, normal mood - Skin Skin exam: Present: normal color, warm, dry Results - Labs CBC & BMP: 04/30/17 06:00 04/30/17 06:00 Lab Results: I have reviewed the past 24 hour labs
[2017-04-30] MEDS: DOCUSATE SODIUM 100 MG CAPSULE PO SCH ×2 (09:14→21:40)
[2017-04-30] MEDS: GABAPENTIN 100 MG CAPSULE PO SCH ×2 (09:14→21:40)
[2017-04-30] MEDS: traMADol 50 MG TABLET PO PRN ×2 (09:14→21:40)
[2017-04-30] MEDS: LISINOPRIL 20 MG TABLET PO SCH (09:15)
[2017-04-30] MEDS: MAGNESIUM OXIDE 400 MG TABLET PO SCH ×2 (09:15→21:40)
[2017-04-30] MEDS: traZODone 50 MG TABLET PO SCH ×2 (09:15→21:40)
[2017-04-30] MEDS: CARVEDILOL 6.25 MG TABLET PO SCH ×2 (09:15→21:41)
[2017-04-30] MEDS: AZELASTINE NASAL 137 MCG/SPRAY 30 ML BOTTLE BOTH NARES SCH ×2 (09:15→21:41)
[2017-04-30] MEDS: POTASSIUM CHLORIDE 20 MEQ TABLET PO SCH (09:15)
[2017-04-30] MEDS: ASPIRIN EC 81 MG TABLET PO SCH (09:15)
[2017-04-30] MEDS: NYSTATIN 500,000 UNIT/5 ML UDCUP PO SCH ×2 (09:16→21:41)
[2017-04-30] MEDS: INSULIN REGULAR 100 UNIT/ML SUBCUT SCH ×4 (09:16→21:39)
[2017-04-30] MEDS: INSULIN GLARGINE 100 UNIT/ML SUBCUT SCH ×3 (09:17→21:39)
[2017-04-30] MEDS: LEVOFLOXACIN INJ 500 MG in PREMIX 1 EACH IV SCH (09:18)
[2017-04-30] MEDS: FUROSEMIDE 40 MG/4 ML VIAL IV SCH ×2 (09:19→16:48)
[2017-04-30] MEDS: PANTOPRAZOLE 40 MG VIAL IV SCH (09:19)
--- NOTE | 2017-04-30 10:27 | Pulmonology Consult Note ---
Assessment and Plan (1) Anasarca Status: Acute Assessment and plan: Chronic edema which has been felt in the past be due to chronic congestive heart failure. Current Visit: No (2) Congestive heart failure Status: Chronic Assessment and plan: He has had transudative pleural effusions in the past. Likely this is the cause for them. Current Visit: Yes (3) Pleural effusion on right Status: Resolved Assessment and plan: It is somewhat loculated. However there is enough fluid that it needs to be drained and cultured. He has an active inflammatory process beneath the diaphragm in his gallbladder. Current Visit: No (4) Cholelithiases Status: Chronic Current Visit: Yes Qualifiers: Cholelithiasis location: gallbladder Cholecystitis presence: with cholecystitis Cholecystitis acuity: chronic Biliary obstruction: with biliary obstruction Qualified Code(s): K80.11 - Calculus of gallbladder with chronic cholecystitis with obstruction History of Present Illness Chief complaint: Right pleural effusion History of present illness: Mr. Tenorio is a 77 year old male who was admitted 3 days ago with abdominal pain. He was found to have acute cholecystitis and now has a cholecystostomy tube in place. His abdominal CT showed a significant right pleural effusion but it is somewhat loculated. He has had thoracenteses in the past showing transudative fluid and felt to be due to congestive heart failure. He is somewhat difficult to tap and that he is obese unable to sit up at present. He has had a dry tap in the past. I think we would do best to have interventional radiology to do a thoracentesis ultrasound directed. He does have an active infectious process below his diaphragm I think we do need to get the fluid out both for therapeutic reasons and to be sure he does not have an infected effusion. Home Medications Medication Instructions Recorded Confirmed Type Albuterol Neb [Proventil Neb] 2.5 mg RESP TX QID 05/17/15 04/27/17 History Albuterol Sulfate [Proair HFA] 2 puff INH Q4HR PRN 05/17/15 04/27/17 History Esomeprazole Magnesium [Nexium] 40 mg PO DAILY 05/17/15 04/27/17 History Insulin Glargine [Lantus] 70 unit SUBCUT BEDTIME 05/17/15 04/27/17 History Tramadol HCl [Tramadol Tab] 100 mg PO Q6H PRN 05/17/15 04/27/17 History Furosemide Tab [Lasix Tab] 40 mg PO BID #60 tablet 11/01/15 04/27/17 Rx Lisinopril 20 mg PO DAILY #0 11/01/15 04/27/17 Rx Ferrous Sulfate Tab [Feosol 325 mg PO BID tablet 02/01/16 04/27/17 Rx Original Tab] Insulin Lispro [HumaLOG KwikPen] 16 unit SUBCUT TID 10/02/16 04/27/17 History Carvedilol 6.25 mg PO BID 11/02/16 04/27/17 History Gabapentin Cap/Tab [Neurontin 200 mg PO BID 11/02/16 04/27/17 History Cap/Tab] Metformin HCl 1,000 mg PO BID W/MEALS 11/02/16 04/27/17 History Azelastine Nasal 137 Mcg/[place] 2 spray BOTH NARES BID #1 nasal 11/03/16 Rx [Astelin Nasal [place]] spray Magnesium Oxide 400 mg PO BID #30 tablet 11/03/16 04/27/17 Rx Potassium Chloride Cap/Tab [K Dur] 10 meq PO DAILY #30 tablet 11/03/16 04/27/17 Rx Aspirin EC Tab 81 mg PO DAILY 04/27/17 04/27/17 History B-Complex with Vitamin C [Vitamin 1 each PO DAILY 04/27/17 04/27/17 History B-Complex with Vit C] Cholecalciferol (Vitamin D3) 5,000 unit PO DAILY 04/27/17 04/27/17 History [Vitamin D3] Ciprofloxacin HCl [Ciprofloxacin 500 mg PO DAILY 04/27/17 04/27/17 History Tab] Nystatin [Nystatin Oral Susp] 500,000 unit PO BID 04/27/17 04/27/17 History Allergies Allergy/AdvReac Type Severity Reaction Status Date / Time codeine Allergy RASH Verified 10/23/15 21:45 ibuprofen Allergy RASH Verified 10/23/15 21:45 12 point system: reviewed and no additional remarkable complaints except as stated - Constitutional Constitutional: Present: fatigue, lethargy - Cardiovascular Cardiovascular: Present: dyspnea, dyspnea on exertion, edema - Respiratory Respiratory: Present: dyspnea, dyspnea on exertion - Gastrointestinal Gastrointestinal: Present: abdominal pain, nausea, vomiting - Genitourinary Genitourinary: Present: difficulty urinating - Psychiatric Psychiatric: Present: anxiety Exam (Pulmonay) H&P - Constitutional Vitals: Period Temp Pulse Resp BP Sys/Interiano Pulse Ox Last 24 Hr 97.7 F-98.9 F 66-88 15-28 103-196/46-120 82-100 Exam: Patient is a little drowsy after pain medications. Pupils react to light vital signs normal. Throat is clear. Neck supple no bruits. Chest reveals decreased breath sounds and dullness at the right base. Heart normal rate rhythm no murmurs. Abdomen soft. There is tenderness in the right upper quadrant. He has a cholecystostomy drain in the right upper quadrant laterally. Extremities no clubbing cyanosis. He does have 1+ edema. Medical,Surgical,& Family Hx - Medical History Cardio: History of: Cardiac Dysrhythmia (atrial fibrillation, history of), CHF, Hypertension, PVD (stent placement in legs), Cardiovascular Problems (stents in legs) No history of: Pacemaker Psychological: No history of: Anxiety Disorders Neurology: History of: Cerebrovascular Accident, Vertigo No history of: Seizures HEENT: History of: Ear Problem (HARD OF HEARING), Eye Problem (BILATERAL IMPLANTS,CATERACTS), HEENT Problems (DRY MOUTH) Endocrine: History of: Diabetes Mellitus (IDDM) Rheumatology: History of;: Rheumatoid Arthritis (ALL OVER), Rheumatological Problems Respiratory: History of: Asthma, Bronchitis, COPD, Pneumonia, Respiratory Problems Genitourinary: History of: Prostate Problems Gastrointestinal: History of: GERD, GI Problems Musculoskeletal: History of: Back/Neck Problems, Musculoskeletal Problems ( LOWER BACK AND BILATERAL KNEES) Hematology: History of: Anemia No history of: Blood Transfusion Reaction - Surgical History Cardiac Surgeries: Sugical HX of: Cardiac Catheterization, Carotid Endarterectomy (BILATERAL) Thoracic Surgeries: Patient denies;: Lobectomy Neurologic Surgeries: Patient denies: Neurologic Surgery HEENT Surgeries: Surgical HX of: Carotid Endarterectomy (BILATERAL), Eye Surgery Patient denies: Thyroid Surgery, Tonsilectomy & Adenoidectomy Abdominal Surgeries: Surgical HX of: Abdominal Surgery (BOWEL RESECTION DUE TO BLUNT TRAUMA AT 12 Y/O), Appendectomy Reproductive Surgeries: Patient denies;: Genitourinary Surgery Orthopedic Surgeries: Surgical HX of;: Spinal Surgery (lumbar) - Family History Family History: Reports;: Family Cancer (SON), Family Diabetes (DAD,AUNT, DAUGHTER), Family Heart Disease, Family Hypertension, Family Stroke - Social History Smoking Status: Former smoker Frequency of Alcohol Use: None Type of Drug Use: None Results - Labs CBC & BMP: 04/30/17 06:00 04/30/17 06:00 Lab Results: I have reviewed the past 24 hour labs - Diagnostic Findings Procedure: Chest x-ray: image reviewed by me (Cardiomegaly right pleural effusion), CT Abdomen and Pelvis: image reviewed by me (Right pleural effusion is noted with compression of the right lower lobe. The effusion is somewhat loculated.)
--- NOTE | 2017-04-30 14:07 | Event Note ---
Patient came down for a routine ultrasound-guided thoracentesis on the right for symptomatic large right pleural effusion. However, with the patient in the procedure room, he becamse veryuncooperative and aggressive towards the staff. When I came in the room and calmly discussed how the procedure could benefit him and would likely only take a few minutes, he agreed to proceed. However, within a couple minutes, he again became aggressive and combative and even attempted to shove one of the assistants who was helping him reposition in the bed. Therefore, the procedure was canceled. This is not an emergent procedure. This patient is not confused and not a candidate for restraint placement. If patient remains symptomatic and thoracentesis is again desired, may consider pulmonary bedside tap as transferring downstairs may be part of the stimulus of his noncooperation/aggression.
[2017-04-30] MEDS: ZINC OXIDE 16% PASTE 57 GM TUBE TOP SCH ×2 (14:43→21:41)
[2017-04-30] MEDS: ENOXAPARIN 40 MG/0.4 ML SYRINGE SUBCUT SCH (16:48)
--- NOTE | 2017-04-30 18:06 | ECHO Report ---
Guillermo Tenorio Exam Date: 04/30/2017 15:46 Referring Physician: Technologist: vandana White ARDMS, RVT Age: 77 Ht (in): 71 Wt (lb): 277 Gender: M Exam Location: [facility] Echo Indications: CHF, Atrial fibrillation, CAD, Abd. pain, Cholelithiasis, Diabetes BP: 141 / 99 HR: 65 Rhythm: Atrial fibrillation Technical Quality: IMPRESSIONS Normal left ventricular size, with mild concentric hypertrophy, with normal systolic function. Estimated left ventricular ejection fraction 55%. Mild biatrial enlargement. Mitral annular calcification. Aortic valve sclerosis, without stenosis or insufficiency. Mild pulmonary hypertension. MEASUREMENTS (Male / Female) Normal Values 2D ECHO LV Diastolic Diameter PLAX 4.0 cm 4.2 - 5.9 / 3.9 - 5.3 cm LV Systolic Diameter PLAX 1.7 cm LV Fractional Shortening PLAX 57.4 % IVS Diastolic Thickness 1.5 cm 0.6 - 1.0 / 0.6 - 0.9 cm LVPW Diastolic Thickness 1.5 cm 0.6 - 1.0 / 0.6 - 0.9 cm RV Internal Dim ED PLAX 4.3 cm Aortic Root Diameter 3.9 cm LA Systolic Diameter LX 5.3 cm 3.0 - 4.0 / 2.7 - 3.8 cm DOPPLER TR Peak Velocity 323.0 cm/s TR Peak Gradient 41.7 mmHg FINDINGS Left Ventricle Normal left ventricular size, with mild concentric hypertrophy, with normal systolic function. Estimated left ventricular ejection fraction 55%. Unable to estimate diastolic dysfunction due to arrhythmia. Right Ventricle Mildly increased right ventricular size, with a normal systolic function. Right Atrium The right atrium is mildly enlarged. Left Atrium Mild left atrial enlargement. Mitral Valve Morphologically normal mitral valve. Mitral annular calcification. Trace insufficiency. Aortic Valve Aortic valve sclerosis without stenosis or regurgitation. Tricuspid Valve Morphologically normal tricuspid valve. Mild tricuspid valve regurgitation. Pulmonary artery systolic pressure estimated at 41 mmHg + right atrial pressure Pulmonic Valve Morphologically normal pulmonic valve without significant stenosis. There is no pulmonic regurgitation. Pericardium Normal pericardium without effusion. Aorta Normal ascending aorta dimension. Jovon Frias (Electronically Signed) Final Date: 30 April 2017 18:05
[2017-04-30] MEDS: cefTRIAXone 1,000 MG in SODIUM CHLORIDE 0.9% 100 ML IV SCH (21:37)
[2017-05-01] MEDS: SODIUM CHLORIDE 0.9% 1,000 ML IV SCH ×2 (01:25→18:15)
[2017-05-01] MEDS: ALBUTEROL/IPRATROPIUM 3 ML NEB RESP TX SCH ×5 (03:06→19:50)
[2017-05-01 06:53] LABS: Basophils % 0.4 % (0.0-0.8); Eosinophils # 0.6 10*3/uL (0.0-0.87); Eosinophils % 10.8 % (0.00-10.9); Hematocrit 27.6 VOL% (42.0-52.0); Hemoglobin 8.5 GM/DL (14.0-18.0); Immature Granulocytes % 0.5 %; Immature Granulocytes Absolute 0.03 #; Lymphocytes # 0.8 10*3/uL (1.4-4.0); Lymphocytes % 13.9 % (21.2-54.2); Mean Corpuscular HGB Conc 30.8 GM/DL (32-36); Mean Corpuscular Hemoglobin 26 PG (27-34); Mean Corpuscular Volume 83.1 FL (87-102); Mean Platelet Volume 10.6 FL (9.6-12.0); Monocytes # 0.8 10*3/uL (0.11-0.8); Monocytes % 13.9 % (1.7-12.7); Neutrophils # 3.3 10*3/uL (1.4-7.4); Neutrophils % 60.5 % (38.7-73.9); Platelet Count 187 T/CUMM (130-400); Red Blood Count 3.32 MC/CUMM (3.8-5.5); Red Cell Distribution Width 18.6 % (9.3-17.3); White Blood Count 5.5 T/CUMM (4-12)
[2017-05-01 07:30] LABS: Calcium 8.1 MG/DL (8.5-10.1); Osmolality,Calculated 277.5 MOS/KG (273-304); Potassium 3.5 MMOL/L (3.5-5.1)
--- NOTE | 2017-05-01 08:57 | Internal Med Progress Note ---
Assessment and Plan (1) Abdominal pain Status: Acute Assessment and plan: 77-year-old male admitted to acute care * Chronic cholecystitis. Better after cholecystotomy tube placed * Uncontrolled diabetes. Better controlled * Large pleural effusion on the right side. He refused thoracentesis * CHF with preserved ejection fraction. He has gained 20 pounds since admission but I do not think the weights were correct * Hypertension. Continue current treatment * Diffuse coronary artery disease. Stable * History of diabetic foot. Stable * Confusion has been noted at times. Will DC his morphine and trazodone which was started during the hospital stay. * Discussed with patient's daughters yesterday. They want him placed in [facility]. I explained to them that patient is capable of refusing. * He has been refusing treatment. I have discussed with him this morning. He wants to go home. * No family is present today. Current Visit: Yes (2) Atrial fibrillation Status: Chronic Current Visit: Yes Qualifiers: Atrial fibrillation type: chronic Qualified Code(s): I48.2 - Chronic atrial fibrillation (3) Cholelithiases Status: Chronic Current Visit: Yes Qualifiers: Cholelithiasis location: gallbladder Cholecystitis presence: with cholecystitis Cholecystitis acuity: chronic Biliary obstruction: with biliary obstruction Qualified Code(s): K80.11 - Calculus of gallbladder with chronic cholecystitis with obstruction (4) Congestive heart failure Status: Chronic Current Visit: Yes (5) Diabetes Status: Chronic Current Visit: Yes Qualifiers: Diabetes mellitus type: type 2 Diabetes mellitus complication status: with hyperglycemia 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 He was quite drowsy this morning. He has been confused at times. He refused his thoracentesis yesterday. He states that he is feeling better. He denies any chest pain or shortness of breath. He denies any nausea vomiting or diarrhea. He wants to go home. Exam (Progress Note) - Constitutional Vitals: Period Temp Pulse Resp BP Sys/Interiano Pulse Ox Last 24 Hr 97.2 F-98.9 F 55-87 16-24 106-148/46-97 88-96 Exam: Examination: GENERAL: Obese white male NECK: Neck is supple. CVS: Irregularly irregular rhythm. S1 and S2 are normal RESPIRATORY: Better air entry. Still decreased breath sounds on the right base ABDOMEN: Soft and decreased tenderness. Cholecystotomy tube is in place EXT: 1+ edema. Peripheral pulses are present. AREA PLANT MANAGER: Patient is awake, alert but confused. Motor strength is 4/5 SKIN: Warm and dry. MSK: No obvious deformity. Results - Labs CBC & BMP: 05/01/17 06:41 05/01/17 06:41 Lab Results: I have reviewed the past 24 hour labs
--- NOTE | 2017-05-01 09:19 | Pulmonology Progress Note ---
Pulmonary - PN: Subj Interval history: This 77-year-old white male had cholecystitis and has a cholecystostomy tube in place. He has a moderate size right pleural effusion that needs draining. Previous thoracenteses have shown this to be a transudate and probably due to congestive heart failure. However I was concerned with the size of the effusion and the fact that he had an ongoing inflammatory process under the diaphragm. However yesterday when he went down for the ultrasound directed thoracentesis he refused it. In discussing this with him this morning he denies that he refused it. In fact he told me several different things this morning that did not make any sense. He does seem to be having some delirium. Wonder if Haldol or Seroquel might be helpful. Will defer to Dr. Barger on that decision. For now we will hold off on the thoracentesis until he is able to get permission. I do not think he is mentally capable of giving permission at present. If his family gives permission we could sedate him before getting it done. Exam (Progress Note) - Constitutional Vitals: Period Temp Pulse Resp BP Sys/Interiano Pulse Ox Last 24 Hr 97.2 F-98.9 F 55-87 16-24 106-148/46-97 88-96 Exam: Patient is responsive. He is argumentative. Vital signs normal. Pupils react to light. Throat is clear. Neck supple bruits. Chest shows some dullness at the right base. He is wearing an elastic bandage around his mid abdomen to keep him from tugging at the cholecystostomy tube. Abdomen is soft bowel sounds present. Extremities no clubbing cyanosis edema. Calves nontender. Results - Labs CBC & BMP: 05/01/17 06:41 05/01/17 06:41 Lab Results: I have reviewed the past 24 hour labs Assessment and Plan (1) Anasarca Status: Acute Assessment and plan: Chronic edema which has been felt in the past be due to chronic congestive heart failure. 05/01/2017 peripheral edema has decreased. Current Visit: No (2) Congestive heart failure Status: Chronic Assessment and plan: He has had transudative pleural effusions in the past. Likely this is the cause for them. 05/01/2017 still needs to have the right thoracentesis done both therapeutically and diagnostically. Current Visit: Yes (3) Pleural effusion on right Status: Acute Assessment and plan: It is somewhat loculated. However there is enough fluid that it needs to be drained and cultured. He has an active inflammatory process beneath the diaphragm in his gallbladder. 05/01/2017 again needs to have a right thoracentesis ultrasound-guided. Dr. Barger plans to talk to his family. We will see what can be done to proceed. Current Visit: No (4) Cholelithiases Status: Chronic Assessment and plan: This is been treated with cholecystostomy tube. 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
[2017-05-01] MEDS: MAGNESIUM OXIDE 400 MG TABLET PO SCH ×2 (10:25→21:45)
[2017-05-01] MEDS: POTASSIUM CHLORIDE 20 MEQ TABLET PO SCH (10:25)
[2017-05-01] MEDS: ASPIRIN EC 81 MG TABLET PO SCH (10:25)
[2017-05-01] MEDS: DOCUSATE SODIUM 100 MG CAPSULE PO SCH ×2 (10:25→21:45)
[2017-05-01] MEDS: LEVOFLOXACIN INJ 500 MG in PREMIX 1 EACH IV SCH (10:25)
[2017-05-01] MEDS: NYSTATIN 500,000 UNIT/5 ML UDCUP PO SCH ×2 (10:26→21:45)
[2017-05-01] MEDS: PANTOPRAZOLE 40 MG VIAL IV SCH (10:26)
[2017-05-01] MEDS: CARVEDILOL 6.25 MG TABLET PO SCH ×2 (10:26→21:46)
[2017-05-01] MEDS: LISINOPRIL 20 MG TABLET PO SCH (10:26)
[2017-05-01] MEDS: FUROSEMIDE 40 MG/4 ML VIAL IV SCH ×2 (10:26→18:16)
[2017-05-01] MEDS: INSULIN REGULAR 100 UNIT/ML SUBCUT SCH ×4 (10:27→21:43)
[2017-05-01] MEDS: INSULIN GLARGINE 100 UNIT/ML SUBCUT SCH ×2 (10:27→21:43)
[2017-05-01] MEDS: AZELASTINE NASAL 137 MCG/SPRAY 30 ML BOTTLE BOTH NARES SCH ×2 (10:28→21:59)
[2017-05-01] MEDS: traMADol 50 MG TABLET PO PRN (10:29)
[2017-05-01] MEDS: GABAPENTIN 100 MG CAPSULE PO SCH ×2 (10:30→21:45)
--- NOTE | 2017-05-01 14:28 | General Surgery Progress Note ---
Assessment and Plan (1) Cholelithiases Status: Chronic Assessment and plan: He appears to have chronic cholecystitis with cholelithiasis. His symptoms are very chronic and have been more of a subacute worsening over the last several weeks. I feel like there is a mass-effect in the right upper quadrant. I suspect with his age chronic problems and chronicity of symptoms that this gallbladder is likely not going to be amenable to a laparoscopic approach and will require an open procedure. This is made worse by his previous abdominal surgery and midline hernias. I discussed the option of percutaneous drainage with him and I will consult interventional radiology to consider this. Please note that this is a late entry and I saw the patient actually this morning. I was unable to put in my assessment and plan because the computer would not allow me to use this part of the record at the same time as other providers. 04/30:Abdomen is better. Feels better and breathes better if sits up. Likely from ateletasis/pleural effusion. Continue drain which I can remove in my office in a week or so 05/01: His abdomen feels better and he has no abdominal complaints today. He is not having nausea or vomiting. His main issue has been his pleural effusion. He refused thoracentesis. Current Visit: Yes Qualifiers: Cholelithiasis location: gallbladder Cholecystitis presence: with cholecystitis Cholecystitis acuity: chronic Biliary obstruction: with biliary obstruction Qualified Code(s): K80.11 - Calculus of gallbladder with chronic cholecystitis with obstruction Subjective Patient reports: Present: feels better, pain is less. Absent: nausea, vomiting Exam - Constitutional Vitals: Period Temp Pulse Resp BP Sys/Interiano Pulse Ox Last 24 Hr 97.2 F-98.9 F 55-87 16-24 94-148/46-97 88-94 General appearance: no acute distress, morbidly obese - GI/Abdominal GI/Abdominal exam: Present: soft. Absent: distended, tenderness Results - Labs CBC & BMP: 05/01/17 06:41 05/01/17 06:41 Lab Results: I have reviewed the past 24 hour labs
[2017-05-01] MEDS: ENOXAPARIN 40 MG/0.4 ML SYRINGE SUBCUT SCH (17:21)
[2017-05-01] MEDS: ZINC OXIDE 16% PASTE 57 GM TUBE TOP SCH ×2 (18:14→21:46)
[2017-05-01] MEDS ORDERED: DEXTROSE 50% 25 GM/50 ML SYRINGE IV PRN (20:00)
[2017-05-01] MEDS: QUEtiapine 25 MG TABLET PO SCH (21:45)
[2017-05-01] MEDS: cefTRIAXone 1,000 MG in SODIUM CHLORIDE 0.9% 100 ML IV SCH (21:48)
[2017-05-02] MEDS: ALBUTEROL/IPRATROPIUM 3 ML NEB RESP TX SCH ×6 (00:14→19:45)
[2017-05-02] MEDS: traMADol 50 MG TABLET PO PRN ×3 (01:00→22:45)
[2017-05-02 07:17] LABS: Basophils % 0.2 % (0.0-0.8); Eosinophils # 0.9 10*3/uL (0.0-0.87); Eosinophils % 17.5 % (0.00-10.9); Hematocrit 27.6 VOL% (42.0-52.0); Hemoglobin 8.4 GM/DL (14.0-18.0); Immature Granulocytes % 0.2 %; Immature Granulocytes Absolute 0.01 #; Lymphocytes # 0.8 10*3/uL (1.4-4.0); Lymphocytes % 17.3 % (21.2-54.2); Mean Corpuscular HGB Conc 30.4 GM/DL (32-36); Mean Corpuscular Hemoglobin 26 PG (27-34); Mean Corpuscular Volume 84.1 FL (87-102); Mean Platelet Volume 10.4 FL (9.6-12.0); Monocytes # 0.6 10*3/uL (0.11-0.8); Monocytes % 12.3 % (1.7-12.7); Neutrophils # 2.6 10*3/uL (1.4-7.4); Neutrophils % 52.5 % (38.7-73.9); Platelet Count 169 T/CUMM (130-400); Red Blood Count 3.28 MC/CUMM (3.8-5.5); White Blood Count 4.9 T/CUMM (4-12)
[2017-05-02 07:51] LABS: Eosinophils 17 % (0-10); Hypochromasia 1+; Lymphocytes 20 % (20-55); Segmented Neutrophils 57 % (50-85); Total Cells Counted 100
[2017-05-02 07:52] LABS: Microcytosis 1+; Ovalocytes Slight; Platelet Estimate Adequate
[2017-05-02 07:56] LABS: Calcium 7.9 MG/DL (8.5-10.1); Osmolality,Calculated 278.4 MOS/KG (273-304); Potassium 3.8 MMOL/L (3.5-5.1)
[2017-05-02] MEDS ORDERED: LORazepam 2 MG/1 ML VIAL IV ONE ×2 (08:27→08:30)
--- NOTE | 2017-05-02 08:29 | Event Note ---
I went to see patient this morning with all his daughters and family present. Patient made clear that he does not want me to take care of his medical problems. I have discussed with patient's daughters and will change him to hospitalist service.
--- NOTE | 2017-05-02 08:30 | Pulmonology Progress Note ---
Pulmonary - PN: Subj Interval history: This 77-year-old white male had cholecystitis and has a cholecystostomy tube in place. He has a moderate size right pleural effusion that needs draining. Previous thoracenteses have shown this to be a transudate and probably due to congestive heart failure. However I was concerned with the size of the effusion and the fact that he had an ongoing inflammatory process under the diaphragm. However yesterday when he went down for the ultrasound directed thoracentesis he refused it. In discussing this with him this morning he denies that he refused it. In fact he told me several different things this morning that did not make any sense. He does seem to be having some delirium. Wonder if Haldol or Seroquel might be helpful. Will defer to Dr. Barger on that decision. For now we will hold off on the thoracentesis until he is able to get permission. I do not think he is mentally capable of giving permission at present. If his family gives permission we could sedate him before getting it done. 05/02/2017 patient still remains somewhat angry. However he does agree to having thoracentesis now. His daughters were in the room. We will give him Ativan 1 mg IV prior to going down for the thoracentesis. Once again I think he would best be done with ultrasound visualization since he has somewhat of a loculated effusion. I have ordered test for the pleural fluid. Exam (Progress Note) - Constitutional Vitals: Period Temp Pulse Resp BP Sys/Interiano Pulse Ox Last 24 Hr 97.4 F-98.4 F 62-87 18-20 94-158/50-83 91-98 Exam: Patient is responsive. He is argumentative, but a little more cooperative today. Vital signs normal. Pupils react to light. Throat is clear. Neck supple bruits. Chest shows some dullness at the right base. He does have some expiratory wheezes. He is wearing an elastic bandage around his mid abdomen to keep him from tugging at the cholecystostomy tube. Abdomen is soft bowel sounds present. Extremities no clubbing cyanosis edema. Calves nontender. Little change from yesterday Results - Labs CBC & BMP: 05/02/17 05:44 05/02/17 05:44 Lab Results: I have reviewed the past 24 hour labs Assessment and Plan (1) Anasarca Status: Acute Assessment and plan: Chronic edema which has been felt in the past be due to chronic congestive heart failure. 05/01/2017 peripheral edema has decreased. 05/02/2017 peripheral edema is decreased. Current Visit: No (2) Congestive heart failure Status: Chronic Assessment and plan: He has had transudative pleural effusions in the past. Likely this is the cause for them. 05/01/2017 still needs to have the right thoracentesis done both therapeutically and diagnostically. 05/02/2017 treating with diuretics. Current Visit: Yes (3) Pleural effusion on right Status: Acute Assessment and plan: It is somewhat loculated. However there is enough fluid that it needs to be drained and cultured. He has an active inflammatory process beneath the diaphragm in his gallbladder. 05/01/2017 again needs to have a right thoracentesis ultrasound-guided. Dr. Barger plans to talk to his family. We will see what can be done to proceed. 05/02/2017 he has had thoracenteses before that were transudative. At this point the effusion is relatively large and he has compression of the right lower lobe. We need the fluid for diagnostic purposes as well as therapeutic to improve his dyspnea. Current Visit: No (4) Cholelithiases Status: Chronic Assessment and plan: This is been treated with cholecystostomy tube. 05/02/[address] cholecystostomy tube in place. 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
[2017-05-02] MEDS: INSULIN REGULAR 100 UNIT/ML SUBCUT SCH ×4 (08:49→21:45)
[2017-05-02] MEDS: INSULIN GLARGINE 100 UNIT/ML SUBCUT SCH ×2 (09:43→21:45)
[2017-05-02] MEDS: FUROSEMIDE 40 MG/4 ML VIAL IV SCH ×2 (09:44→15:02)
[2017-05-02] MEDS: PANTOPRAZOLE 40 MG VIAL IV SCH (09:44)
[2017-05-02] MEDS: CARVEDILOL 6.25 MG TABLET PO SCH ×2 (09:45→21:46)
[2017-05-02] MEDS: DOCUSATE SODIUM 100 MG CAPSULE PO SCH ×2 (09:45→21:46)
[2017-05-02] MEDS: NYSTATIN 500,000 UNIT/5 ML UDCUP PO SCH ×2 (09:45→21:46)
[2017-05-02] MEDS: GABAPENTIN 100 MG CAPSULE PO SCH ×2 (09:45→21:46)
[2017-05-02] MEDS: LISINOPRIL 20 MG TABLET PO SCH (09:45)
[2017-05-02] MEDS: POTASSIUM CHLORIDE 20 MEQ TABLET PO SCH (09:45)
[2017-05-02] MEDS: MAGNESIUM OXIDE 400 MG TABLET PO SCH ×2 (09:45→21:46)
[2017-05-02] MEDS: LEVOFLOXACIN INJ 500 MG in PREMIX 1 EACH IV SCH (09:46)
[2017-05-02] MEDS: ASPIRIN EC 81 MG TABLET PO SCH (09:46)
[2017-05-02] MEDS: SODIUM CHLORIDE 0.9% 1,000 ML IV SCH ×2 (09:46→21:52)
[2017-05-02] MEDS: AZELASTINE NASAL 137 MCG/SPRAY 30 ML BOTTLE BOTH NARES SCH ×2 (10:01→22:46)
[2017-05-02] MEDS: ZINC OXIDE 16% PASTE 57 GM TUBE TOP SCH ×2 (11:08→21:45)
--- NOTE | 2017-05-02 12:47 | Post Interventional Procedure ---
Pre-op diagnosis: large right pleural effusion Post-op diagnosis: same Procedure: u/s guided thoracentesis Contrast: none Flouroscopy: none Radiologist: Dinesh Roberts Anesthesia: local Specimens: none sent Estimated blood loss: none Complications: none Condition: stable Description/Findings: 1.5 L serous pleural fluid removed without difficulty patient tolerated well Assessment and Plan - Time spent with patient Time spent with patient: Less than 30 minutes
--- NOTE | 2017-05-02 13:27 | Ultrasound Report ---
Exam: ULTRASOUND-GUIDED THORACENTESIS Clinical history: History of large right pleural effusion with shortness of breath/dyspnea. Physician: Dr. Roberts. Procedure: Informed consent was obtained prior to the procedure. A formal timeout was performed. Maximum sterile barrier technique was used. A right-sided pleural effusion was identified with ultrasound. The right posterior chest was prepped and draped in sterile fashion. 1% lidocaine was used to anesthetize the skin and subcutaneous tissues. Under sonographic guidance, a 6 Romanian safety centesis needle and catheter were advanced into the effusion using trocar technique. A captured sonographic image demonstrates positioning of the needle within the targeted pleural fluid. The needle was removed. Through the catheter, we obtained a total of 1500 cc of serous pleural fluid. The catheter was removed. A bandage was placed at the puncture site. The patient tolerated the procedure well. Chest radiograph is pending. Impression: 1. Technically successful ultrasound guided right thoracentesis as detailed above. 2. Post procedure chest radiograph is pending. PROCEDURE INTERPRETED AT [facility] DEPARTMENT OF RADIOLOGY Final Report Signed by: Dinesh Roberts
--- NOTE | 2017-05-02 13:27 | Hospitalist Progress Note ---
Assessment and Plan (1) Abnormal biliary HIDA scan Problem details: 0% ejection fraction Status: Acute Assessment and plan: 1)cholecystitis- perc drain placed, feeling better. 2)pleural effusion- has had this before per chart review. tapped today, labs pending 3)HTN- controlled- monitor. 4)DM- controlled. 5)CKD- stage 2 6)anemia- stable 7)dispo- to swing bed tomorrow. 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 Qualified Code(s): E11.65 - Type 2 diabetes mellitus with hyperglycemia; Z79.4 - custodial (current) use of insulin (6) Hypertension Status: Chronic Current Visit: No Qualifiers: Hypertension type: essential hypertension Qualified Code(s): I10 - Essential (primary) hypertension (7) Cholelithiases Status: Chronic Current Visit: Yes Qualifiers: Cholelithiasis location: gallbladder Cholecystitis presence: with cholecystitis Cholecystitis acuity: chronic Biliary obstruction: with biliary obstruction Qualified Code(s): K80.11 - Calculus of gallbladder with chronic cholecystitis with obstruction Hospitalist: Subjective Interval history: I have seen MR Tenorio today because when the patient fired Dr Barger, the family requested that i see him. He has no complaints. He had his thoracentesis this morning and tolerated it. Labs pending on the pleural fluid. He has a bed at [facility] tomorrow. He may need IV antibiotics- will need to discuss with Dr Castellon. Exam - Constitutional Vitals: Period Temp Pulse Resp BP Sys/Interiano Pulse Ox Last 24 Hr 97.4 F-98.1 F 61-91 18-24 106-186/43-94 90-98 General appearance: no acute distress, morbidly obese - Head Head exam: Present: normocephalic, atraumatic - Eye Eye exam: Present: EOMI. Absent: scleral icterus - Respiratory Respiratory exam: Present: clear to auscultation bilaterally, decreased breath sounds. Absent: wheezes - Cardiovascular Cardiovascular exam: Present: regular rate and rhythm - GI/Abdominal GI/Abdominal exam: Present: normal bowel sounds, soft. Absent: tenderness - Extremities Exam Extremities exam: Absent: edema Results - Labs CBC & BMP: 05/02/17 05:44 05/02/17 05:44 Lab Results: I have reviewed the past 24 hour labs
--- NOTE | 2017-05-02 13:31 | XRay Report ---
XR chest post procedure Indication: Status post thoracentesis. Comparison: Chest x-ray 04/27/2017 Technique: Portable AP chest in inspiration and expiration. Findings: Some reduction in size of right-sided pleural effusion is demonstrated. No pneumothorax is present. The chest otherwise demonstrates little change. Impression: 1. Findings compatible with right-sided thoracentesis. Little interval change in the chest is otherwise demonstrated. 05/02/2017 1:28 PM PROCEDURE INTERPRETED AT [facility] DEPARTMENT OF RADIOLOGY Final Report Signed by: Dr. Joseph Calderon
[2017-05-02] MEDS: ENOXAPARIN 40 MG/0.4 ML SYRINGE SUBCUT SCH (16:20)
--- NOTE | 2017-05-02 17:39 | General Surgery Progress Note ---
Assessment and Plan (1) Cholelithiases Status: Chronic Assessment and plan: He appears to have chronic cholecystitis with cholelithiasis. His symptoms are very chronic and have been more of a subacute worsening over the last several weeks. I feel like there is a mass-effect in the right upper quadrant. I suspect with his age chronic problems and chronicity of symptoms that this gallbladder is likely not going to be amenable to a laparoscopic approach and will require an open procedure. This is made worse by his previous abdominal surgery and midline hernias. I discussed the option of percutaneous drainage with him and I will consult interventional radiology to consider this. Please note that this is a late entry and I saw the patient actually this morning. I was unable to put in my assessment and plan because the computer would not allow me to use this part of the record at the same time as other providers. 04/30:Abdomen is better. Feels better and breathes better if sits up. Likely from ateletasis/pleural effusion. Continue drain which I can remove in my office in a week or so 05/01: His abdomen feels better and he has no abdominal complaints today. He is not having nausea or vomiting. His main issue has been his pleural effusion. He refused thoracentesis. 05/02: He denies abdominal pain. He has no abdominal tenderness or abdominal symptoms at this point. He is tolerating a diet. He appears to responded well to percutaneous drainage and antibiotics. I will leave discharge plans up to you and I will be happy to see him back in the office and remove his drain in about 2 weeks. Current Visit: Yes Qualifiers: Cholelithiasis location: gallbladder Cholecystitis presence: with cholecystitis Cholecystitis acuity: chronic Biliary obstruction: with biliary obstruction Qualified Code(s): K80.11 - Calculus of gallbladder with chronic cholecystitis with obstruction Subjective Patient reports: Present: feels better. Absent: still having pain, nausea, vomiting Exam - Constitutional Vitals: Period Temp Pulse Resp BP Sys/Interiano Pulse Ox Last 24 Hr 97.4 F-98.1 F 61-91 18-24 106-186/43-94 90-98 General appearance: no acute distress - GI/Abdominal GI/Abdominal exam: Present: soft. Absent: distended, guarding, tenderness, rebound Results - Labs CBC & BMP: 05/02/17 05:44 08/10/17 05:44 Lab Results: I have reviewed the past 24 hour labs
[2017-05-02] MEDS: QUEtiapine 25 MG TABLET PO SCH (21:46)
[2017-05-02] MEDS: cefTRIAXone 1,000 MG in SODIUM CHLORIDE 0.9% 100 ML IV SCH (22:45)
[2017-05-03] MEDS: ALBUTEROL/IPRATROPIUM 3 ML NEB RESP TX SCH ×5 (00:05→14:10)
[2017-05-03 05:25] LABS: Basophils % 0.4 % (0.0-0.8); Eosinophils % 18.6 % (0.00-10.9); Hematocrit 25.7 VOL% (42.0-52.0); Immature Granulocytes % 0.2 %; Immature Granulocytes Absolute 0.01 #; Lymphocytes # 0.9 10*3/uL (1.4-4.0); Lymphocytes % 15.5 % (21.2-54.2); Mean Corpuscular HGB Conc 31.1 GM/DL (32-36); Mean Corpuscular Hemoglobin 26 PG (27-34); Mean Corpuscular Volume 83.7 FL (87-102); Mean Platelet Volume 9.9 FL (9.6-12.0); Monocytes # 0.7 10*3/uL (0.11-0.8); Monocytes % 12.4 % (1.7-12.7); Neutrophils # 2.9 10*3/uL (1.4-7.4); Neutrophils % 52.9 % (38.7-73.9); Platelet Count 179 T/CUMM (130-400); Red Blood Count 3.07 MC/CUMM (3.8-5.5); White Blood Count 5.5 T/CUMM (4-12)
[2017-05-03 05:49] LABS: Calcium 7.8 MG/DL (8.5-10.1); Osmolality,Calculated 281.1 MOS/KG (273-304); Potassium 3.7 MMOL/L (3.5-5.1)
[2017-05-03 06:37] LABS: Band Neutrophils 1 % (0-10); Eosinophils 11 % (0-10); Lymphocytes 11 % (20-55); Segmented Neutrophils 64 % (50-85); Total Cells Counted 100
[2017-05-03 06:38] LABS: Anisocytosis 2+; Microcytosis 1+; Ovalocytes 1+; Platelet Estimate Normal
[2017-05-03 06:39] LABS: Elliptocytes 1+
[2017-05-03] MEDS: INSULIN REGULAR 100 UNIT/ML SUBCUT SCH ×3 (07:33→15:35)
[2017-05-03] MEDS: LISINOPRIL 20 MG TABLET PO SCH (08:29)
[2017-05-03] MEDS: MAGNESIUM OXIDE 400 MG TABLET PO SCH (08:30)
[2017-05-03] MEDS: GABAPENTIN 100 MG CAPSULE PO SCH (08:30)
[2017-05-03] MEDS: ASPIRIN EC 81 MG TABLET PO SCH (08:30)
[2017-05-03] MEDS: NYSTATIN 500,000 UNIT/5 ML UDCUP PO SCH (08:31)
[2017-05-03] MEDS: POTASSIUM CHLORIDE 20 MEQ TABLET PO SCH (08:31)
[2017-05-03] MEDS: DOCUSATE SODIUM 100 MG CAPSULE PO SCH (08:31)
[2017-05-03] MEDS: CARVEDILOL 6.25 MG TABLET PO SCH (08:31)
[2017-05-03] MEDS: FUROSEMIDE 40 MG/4 ML VIAL IV SCH ×2 (08:32→15:35)
[2017-05-03] MEDS: LEVOFLOXACIN INJ 500 MG in PREMIX 1 EACH IV SCH (08:32)
[2017-05-03] MEDS: INSULIN GLARGINE 100 UNIT/ML SUBCUT SCH (08:32)
[2017-05-03] MEDS: AZELASTINE NASAL 137 MCG/SPRAY 30 ML BOTTLE BOTH NARES SCH (08:33)
[2017-05-03] MEDS: ZINC OXIDE 16% PASTE 57 GM TUBE TOP SCH (08:33)
[2017-05-03] MEDS: PANTOPRAZOLE 40 MG VIAL IV SCH (08:33)
[2017-05-03] MEDS ORDERED: MAGNESIUM HYDROXIDE SUSP 30 ML UDCUP PO PRN ×2 (09:43→09:54)
--- NOTE | 2017-05-03 09:45 | Pulmonology Progress Note ---
Pulmonary - PN: Subj Interval history: This 77-year-old white male had cholecystitis and has a cholecystostomy tube in place. He has a moderate size right pleural effusion that needs draining. Previous thoracenteses have shown this to be a transudate and probably due to congestive heart failure. However I was concerned with the size of the effusion and the fact that he had an ongoing inflammatory process under the diaphragm. However yesterday when he went down for the ultrasound directed thoracentesis he refused it. In discussing this with him this morning he denies that he refused it. In fact he told me several different things this morning that did not make any sense. He does seem to be having some delirium. Wonder if Haldol or Seroquel might be helpful. Will defer to Dr. Barger on that decision. For now we will hold off on the thoracentesis until he is able to get permission. I do not think he is mentally capable of giving permission at present. If his family gives permission we could sedate him before getting it done. 05/02/2017 patient still remains somewhat angry. However he does agree to having thoracentesis now. His daughters were in the room. We will give him Ativan 1 mg IV prior to going down for the thoracentesis. Once again I think he would best be done with ultrasound visualization since he has somewhat of a loculated effusion. I have ordered test for the pleural fluid. 05/03/2017 pleural fluid has been removed and shows to be a transudate. Gram stain is negative. Cultures are pending. This is likely related to congestive heart failure. Does not appear to be infected. Continue with diuresis. Exam (Progress Note) - Constitutional Vitals: Period Temp Pulse Resp BP Sys/Interiano Pulse Ox Last 24 Hr 97.4 F-98.7 F 56-91 18-24 103-186/43-94 90-98 Exam: Patient is responsive. He is argumentative, but a little more cooperative today. Vital signs normal. Pupils react to light. Throat is clear. Neck supple bruits. Chest shows good breath sounds at the right base. He does have some expiratory wheezes. He is wearing an elastic bandage around his mid abdomen to keep him from tugging at the cholecystostomy tube. Abdomen is soft bowel sounds present. Extremities no clubbing cyanosis edema. Calves nontender. Results - Labs CBC & BMP: 05/03/17 04:44 05/03/17 04:44 Lab Results: I have reviewed the past 24 hour labs - Diagnostic Findings Procedure: Chest x-ray: image reviewed by me (Most of right pleural effusion gone.) Assessment and Plan (1) Anasarca Status: Acute Assessment and plan: Chronic edema which has been felt in the past be due to chronic congestive heart failure. 05/01/2017 peripheral edema has decreased. 05/02/2017 peripheral edema is decreased. 05/03/2017 this is due to congestive heart failure. Needs further diuresis and follow his renal function closely Current Visit: No (2) Congestive heart failure Status: Chronic Assessment and plan: He has had transudative pleural effusions in the past. Likely this is the cause for them. 05/01/2017 still needs to have the right thoracentesis done both therapeutically and diagnostically. 05/02/2017 treating with diuretics. 05/03/2017 again treated with diuretics. He is getting some saline. That needs to be discontinued Current Visit: Yes (3) Pleural effusion on right Status: Acute Assessment and plan: It is somewhat loculated. However there is enough fluid that it needs to be drained and cultured. He has an active inflammatory process beneath the diaphragm in his gallbladder. 05/01/2017 again needs to have a right thoracentesis ultrasound-guided. Dr. Barger plans to talk to his family. We will see what can be done to proceed. 05/02/2017 he has had thoracenteses before that were transudative. At this point the effusion is relatively large and he has compression of the right lower lobe. We need the fluid for diagnostic purposes as well as therapeutic to improve his dyspnea. 05/03/2017 this is been removed with ultrasound-guided thoracentesis. The fluid is a transudate. Gram stain is negative. Cultures not out yet but it certainly does not appear that there is an infection involved. This is due to congestive heart failure. Current Visit: No (4) Cholelithiases Status: Chronic Assessment and plan: This is been treated with cholecystostomy tube. 05/02/[address] tube in place. 05/03/2017 defer to surgery. Has cholecystostomy tube in place. 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
--- NOTE | 2017-05-03 10:59 | Discharge Summary ---
Hospital Course - Hospital Course Hospital Course: Mr Tenorio came in with N, V and elevated glucose. He had acute cholecystitis. He was seen by Dr Niño and DR Castellon while he was here. Dr Barger was his attendign until yesterday when the patient fired him and I was asked to take over the case. At that time he had perc drain that will remain in place for a couple more weeks until he sees Dr Niño in the clinic. Also he will remain on levaquin to cover the cholecystitis. He had pleural effusion that was tapped and was transudative. He will continue with oral lasix. He should see DR Castellon in clinic as well as his PCP when he is discharged from swing bed. - Time spent with patient Time with patient DS: Greater than 30 minutes (exam, care coordination, documentation, medicine reconciliation) Diagnosis - Discharge Diagnosis (1) Abnormal biliary HIDA scan Status: Resolved (2) Pleural effusion, right Status: Resolved (3) Congestive heart failure Status: Chronic (4) Anemia Status: Chronic (5) Diabetes Status: Chronic (6) Hypertension Status: Chronic (7) Cholelithiases Status: Resolved Specialty Discharge - Follow Up or Referrals Follow up with: Maico Castellon MD [Physician] - Your, PCP [Other] (after dc from swing bed) Ramiro Niño III., MD [Physician] - 2 Weeks Discharge Plan - Discharge Data Disposition: Disch/Xfer to Snf Condition at Discharge: Stable Discharge Diet: diabetic diet, heart healthy Activity: as per physical therapy - Discharge Medications New Albuterol/Ipratropium Neb [Duoneb] 3 ml RESP TX RT Q4H Docusate Sodium Cap [Colace Cap] 100 mg PO BID capsule Glucagon 1 mg IM PRN PRN vial PRN Reason: Hypoglycemia w/o IV access Insulin Glargine [Lantus] 30 unit SUBCUT DAILY W/BREAKFAST unit Insulin Glargine [Lantus] 30 unit SUBCUT BEDTIME unit Levofloxacin Inj [Levaquin Inj] 500 mg IV Q24H Magnesium Hydroxide Susp [Milk of Magnesia] 30 ml PO Q6H PRN PRN Reason: Constipation Potassium Chloride Cap/Tab [K Dur] 20 meq PO DAILY tablet QUEtiapine [SEROquel] 12.5 mg PO BEDTIME tablet cefTRIAXone [Rocephin] 1,000 mg IV Q24H vial Insulin Regular [HumuLIN R] See Protocol SUBCUT ACHS unit Continue Esomeprazole Magnesium [Nexium] 40 mg PO DAILY Tramadol HCl [Tramadol Tab] 100 mg PO Q6H PRN PRN Reason: Pain Albuterol Sulfate [Proair HFA] 2 puff INH Q4HR PRN PRN Reason: Shortness Of Breath Furosemide Tab [Lasix Tab] 40 mg PO BID #60 tablet Lisinopril 20 mg PO DAILY #0 Ferrous Sulfate Tab [Feosol Original Tab] 325 mg PO BID tablet Carvedilol 6.25 mg PO BID Gabapentin Cap/Tab [Neurontin Cap/Tab] 200 mg PO BID Azelastine Nasal 137 Mcg/[place] [Astelin Nasal [place]] 2 spray BOTH NARES BID # 1 nasal spray Cholecalciferol (Vitamin D3) [Vitamin D3] 5,000 unit PO DAILY B-Complex with Vitamin C [Vitamin B-Complex with Vit C] 1 each PO DAILY Magnesium Oxide 400 mg PO BID #30 tablet Aspirin EC Tab 81 mg PO DAILY Nystatin [Nystatin Oral Susp] 500,000 unit PO BID Discontinued Albuterol Neb [Proventil Neb] 2.5 mg RESP TX QID Insulin Glargine [Lantus] 70 unit SUBCUT BEDTIME Metformin HCl 1,000 mg PO BID W/MEALS Ciprofloxacin HCl [Ciprofloxacin Tab] 500 mg PO DAILY Insulin Lispro [HumaLOG KwikPen] 16 unit SUBCUT TID Potassium Chloride Cap/Tab [K Dur] 10 meq PO DAILY #30 tablet - Follow Up or Referral Follow Up: Your, PCP [Other] (after dc from swing bed) Ramiro Niño III., MD [Physician] - 2 Weeks Maico Castellon MD [Physician] - - Forms/Instructions Instructions: Angina (DC), Heart Failure (DC), Epigastric Pain (GEN) Exam - Constitutional Vitals: Period Temp Pulse Resp BP Sys/Interiano Pulse Ox Last 24 Hr 97.4 F-98.7 F 56-91 18-24 103-186/43-94 90-98 General appearance: no acute distress, morbidly obese - Head Head exam: Present: normocephalic, atraumatic - Eye Eye exam: Present: EOMI. Absent: scleral icterus - Respiratory Respiratory exam: Present: clear to auscultation bilaterally - Cardiovascular Cardiovascular exam: Present: regular rate and rhythm - GI/Abdominal GI/Abdominal exam: Present: normal bowel sounds, soft. Absent: tenderness - Extremities Exam Extremities exam: Absent: edema Discharge Results Procedures and tests throughout hospitalization: Pending Orders 04/30/17 10:32 Cytology Request Routine 05/02/17 AFB Culture/Smears Routine Body Fluid Cult and Gram Stain Routine 05/02/17 08:26 AFB Culture/Smears Routine Body Fluid Cult and Gram Stain Routine Glucose,Pleural Fluid Routine LDH,Body Fluid Routine Total Protein,Body Fluid Routine Cytology Request Routine 05/04/17 04:00 BNP [B-Type Natriuretic Peptide] IN AM Basic Metabolic Panel w/Mg IN AM Labs on day of discharge: Labs from last 24 hours 05/03/17 05/03/17 05/02/17 04:44 04:44 Unknown WBC 5.5 RBC 3.07 L Hgb 8.0 L Hct 25.7 L MCV 83.7 L MCH 26 L MCHC 31.1 L RDW 18.0 H Plt Count 179 MPV 9.9 Neut % (Auto) 52.9 Lymph % (Auto) 15.5 L Knox % (Auto) 12.4 Eos % (Auto) 18.6 H Baso % (Auto) 0.4 Neut # (Auto) 2.9 Lymph # (Auto) 0.9 L Knox # (Auto) 0.7 Eos # (Auto) 1.0 H Baso # (Auto) 0.0 Total Counted 100 Immature Gran % 0.2 Nucleated RBC % 0.0 Immature Gran # 0.01 Segmented Neutrophils 64 Band Neutrophils 1 Lymphocytes 11 L Monocytes 13 Eosinophils 11 H Nucleated RBCs # 0.00 Platelet Estimate Normal Immature Plt Fraction 0.0 Anisocytosis 2+ Microcytosis 1+ Ovalocytes 1+ Elliptocytes 1+ Sodium 142 Potassium 3.7 Chloride 105 Carbon Dioxide 31 Anion Gap 9.7 BUN 13 Creatinine 1.10 GFR Calculation 91 BUN/Creatinine Ratio 11.00 Glucose 76 POC Glucose Calculated Osmolality 281.1 Calcium 7.8 L Fluid Total Protein 2.2 Fluid LDH Pleural Glucose 05/02/17 05/02/17 05/02/17 Unknown Unknown 20:18 WBC RBC Hgb Hct MCV MCH MCHC RDW Plt Count MPV Neut % (Auto) Lymph % (Auto) Knox % (Auto) Eos % (Auto) Baso % (Auto) Neut # (Auto) Lymph # (Auto) Knox # (Auto) Eos # (Auto) Baso # (Auto) Total Counted Immature Gran % Nucleated RBC % Immature Gran # Segmented Neutrophils Band Neutrophils Lymphocytes Monocytes Eosinophils Nucleated RBCs # Platelet Estimate Immature Plt Fraction Anisocytosis Microcytosis Ovalocytes Elliptocytes Sodium Potassium Chloride Carbon Dioxide Anion Gap BUN Creatinine GFR Calculation BUN/Creatinine Ratio Glucose POC Glucose 211 H Calculated Osmolality Calcium Fluid Total Protein Fluid LDH 54 Pleural Glucose 160 05/02/17 05/02/17 17:53 07:29 WBC RBC Hgb Hct MCV MCH MCHC RDW Plt Count MPV Neut % (Auto) Lymph % (Auto) Knox % (Auto) Eos % (Auto) Baso % (Auto) Neut # (Auto) Lymph # (Auto) Knox # (Auto) Eos # (Auto) Baso # (Auto) Total Counted Immature Gran % Nucleated RBC % Immature Gran # Segmented Neutrophils Band Neutrophils Lymphocytes Monocytes Eosinophils Nucleated RBCs # Platelet Estimate Immature Plt Fraction Anisocytosis Microcytosis Ovalocytes Elliptocytes Sodium Potassium Chloride Carbon Dioxide Anion Gap BUN Creatinine GFR Calculation BUN/Creatinine Ratio Glucose POC Glucose 300 H 104 Calculated Osmolality Calcium Fluid Total Protein Fluid LDH Pleural Glucose Preliminary micro results at discharge 05/02/17 Unknown Direct Acid Fast Bacilli Smear - Preliminary Pleural Fluid No acid fast bacilli seen DS: Provider Date of admission: 04/27/17 18:17 Primary care physician: . No PCP Attending physician on admission: Dina Kumar DO Consults: 04/27/17 18:18 Consult to Case Mgmt/Social Srvs [CONS] Routine Reason for Case Mgmt/Social Srvs: Discharge Planning 04/27/17 22:43 Consult to Physician [CONS] Routine Comment: persistent nausea Consulting Provider: Ac Avila Consulting Provider Notified: Yes Consult to Specialist Group: Gastroenterology Person Notified: NIDIA Date Notified: 04/29/17 Time Notified: 08:50 04/28/17 16:06 Consult to Physician [CONS] Routine Comment: abd pain, nausea and vomiting; gallbladder Consulting Provider: Ramiro Niño III. 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 Consult Comment: Uncontrolled diabetes Consult to Occupational Therapy [CONS] Routine Reason for Occupational Therapy: Evaluate and Treat Consult to Physical Therapy [CONS] Routine Reason for Physical Therapy: Evaluate and Treat 04/29/17 12:34 Consult to Case Mgmt/Social Srvs [CONS] Routine Reason for Case Mgmt/Social Srvs: Psychiatric Management Consult Comment: for Ana psych 04/29/17 12:37 Consult to Physician [CONS] Routine Comment: Collapsed right lower lobe with effusion Consulting Provider: Markus Kumar When should Consulting Provider be notified: Now Person Notified: Jason Date Notified: 04/29/17 Time Notified: 14:25 Discharging clinician: Winnie Swenson MD
[2017-05-03 12:15] VITALS: BP 154/68
[2017-05-03] MEDS: traMADol 50 MG TABLET PO PRN (14:31)
[2017-05-03] MEDS: ENOXAPARIN 40 MG/0.4 ML SYRINGE SUBCUT SCH (15:35)
--- NOTE | 2017-05-06 13:16 | Pathology Report from [facility] ---
[facility] [place] ACCESSION # : [id number] PATIENT NAME : Guillermo Tenorio ORDERING DR : Dinesh Roberts MD CLINICAL HX: Right Pleural Effusion POST-OP DX: Same SPECIMEN INFO: Fluid,Pleural,Right - 1500 mls yellow, cloudy CLASS: I CLASS COMMENTS: Benign mesothelial cells with minimal inflammation.CELL BLOCK: Same. CLASS LEGEND: CLASS 0 Material inadequate for diagnosis because of (see comment) CLASS I Absence of atypical or abnormal cells CLASS II Atypical Cytology but no evidence of malignancy CLASS III Cytology suggestive of but not conclusive for malignancy CLASS IV Cytology strongly suggestive of malignancy CLASS V Cytology conclusive for malignancy COLLECTED DATE: 05/02/2017 [facility] REPORT DATE: 05/03/2017 ELECTRONICALLY SIGNED BY: Sean Aaron M.D. 05/03/2017 - 10:08:27 LE
== END 2017-05-03 15:00 | disposition swing bed (61) | DRG 444 ==
LOC: N.ED 15:35 → N.EDINP 18:17 → SUATTDRO 18:17 → N.ICU 19:05 → N.5E 04-29 10:55
PROVIDERS: ADMIT Internal Medicine; ATTEND Internal Medicine
PROC: IRTHORA (2017-05-02 11:20)